=== PATIENT | female | born 1970 | race Caucasian/White ===

== ENCOUNTER 2023-05-23 17:33 | Emergency (ER) | payer OTHER, SELFPAY ==
[2023-05-23 17:37] VITALS: BP 158/77; PULSE 88; RESP 18; TEMP 36.2; O2SAT 93; BMI 42.6
--- NOTE | 2023-05-23 17:44 | ED_ITS ---
HPI - Back Pain/Injury General Chief Complaint: Back Pain/Injury Stated Complaint: back and upper leg pain Time Seen by Provider: 05/23/23 17:44 Source: patient History of Present Illness HPI Narrative: This is a 52-year-old female presents emergency department due to right-sided lumbar pain with radiation to her right anterior thigh onset 4 days ago while lifting up her . She isn't recall any acute trauma to the lower back or right lower extremity. Denies any saddle paresthesia, urinary or bowel incontinence, fevers, or any other concerning signs or symptoms. Related Data Home Medications Medication Instructions Recorded Confirmed Atorvastatin Calcium (Lipitor) 40 mg PO HS ##0 01/18/10 07/08/22 LEVOTHYROXINE SODIUM (Synthroid) 75 mcg PO ##0 01/18/10 07/08/22 Metformin Hydrochloride 1,000 mg PO BID ##0 01/18/10 07/08/22 (Glucophage) [FISH OIL] 1,000 mg PO QDAY ##0 01/18/10 07/08/22 Previous Rx's Medication Instructions Recorded alprazolam 2 mg tablet (Xanax) 2 mg PO ONCE PRN anxiety #1 tab 07/08/22 cyclobenzaprine 10 mg tablet 10 mg PO TID #30 tabs 05/23/23 methylprednisolone 4 mg tablets in See Rx Instructions PO .COMPLEX 05/23/23 a dose pack (Medrol (Dada)) #21 ea Allergies Allergy/AdvReac Type Severity Reaction Status Date / Time No Known Drug Allergies Allergy Verified 05/23/23 17:37 Review of Systems Review of Systems Narrative: GENERAL: Denies chills, fatigue, malaise, fever, sweats. HEENT: Denies sinus pain, ear pain, sore throat, difficulty swallowing, dizziness. RESPIRATORY: Denies dyspnea, cough, wheezing, hemoptysis, sputum. CARDIOVASCULAR: Denies chest pain, palpitations, orthopnea, edema, GASTROINTESTINAL: Denies nausea, vomiting, abdominal pain, diarrhea, constipation, melena. : Denies dysuria, frequency, incontinence, hematuria, urinary retention. MUSCULOSKELETAL: Reports right-sided lower back pain as well as right thigh pain SKIN: Denies rash, skin lesions, or other NEUROLOGIC: Denies weakness, headache, numbness, change in speech, confusion, seizures, incoordination. PSYCHIATRIC: No concerning psychosocial issues. 12 point review of systems is negative except for those stated above Patient History Social History Smoking Status: Never smoker Smoking Status: Never smoker alcohol intake frequency: holidays/special occasions only Substance Use Type: does not use Exam Narrative Exam Narrative: GENERAL: Well-developed patient, in mild distress. HEAD: Atraumatic. Normocephalic. EYES: Pupils equal round and reactive. Extraocular motions intact. No scleral icterus. No injection or drainage. ENT: Nose without bleeding, purulent drainage. Throat without erythema, tonsillar hypertrophy or exudate. Airway patent. NECK: Trachea midline. Non tender EXTREMITIES: No edema or joint tenderness. BACK: Tenderness to palpation to the right lumbar paraspinal NEURO: AOx3. SKIN: No rash or erythema of visible areas Initial Vital Signs Initial Vital Signs: Vital Signs Temperature 97.2 F L 05/23/23 17:37 Pulse Rate 88 05/23/23 17:37 Respiratory Rate 18 05/23/23 17:37 Blood Pressure 158/77 H 05/23/23 17:37 Pulse Oximetry 93 05/23/23 17:37 Oxygen Delivery Method Room Air 05/23/23 17:37 Course Vital Signs Vital signs: Vital Signs - 8 hr 05/23/23 17:37 Temperature 97.2 F L Pulse Rate 88 Respiratory Rate 18 Blood Pressure 158/77 H Pulse Oximetry 93 Oxygen Delivery Method Room Air MDM - Back Pain/Injury MDM Narrative Medical decision making narrative: MDM * differential diagnosis includes but not limited to lumbosacral strain, spinal cord injury, vertebral fracture * Prior records reviewed: Patient has not been here for similar complaints in the past * My lab interpretation: None obtained * My imgaing interpretation: None obtained * Clinical Decision Rules/Scores evaluated: None * Independent discussions with: None ED Course: This is a 52-year-old female presenting to the emergency department due to suspected lumbosacral strain. She had not present with any red flag symptoms concerning for any kind of spinal cord injury. Based on mechanism low concern for any kind of vertebral fracture. 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 We will prescribe cyclobenzaprine and Medrol Dosepak. Recommended ibuprofen and Tylenol [id number] as well as light stretching. Toradol given in the emergency department. Shared Decision Making: Discussed plan with the patient who is comfortable with the plan Social Considerations: None Disposition: Discharged to home Discharge Plan Departure Patient Disposition: Home Clinical Impression: Strain of lumbar region Instructions: DI for Back Strain or Sprain Activity Restrictions/Additional Instructions: Thank you for coming to the [facility] Emergency Department today. As we discussed I suspect your of the lumbosacral strain. The Toradol give me today should help. We will also prescribe muscle relaxants as well as steroids to decrease the inflammation. Also recommend Tylenol ibuprofen as needed for the pain. Please continue with light activity and stretching. I hope you feel better soon. Please follow up with your primary care provider within a week if your symptoms continue. If you do not have a primary care provider please contact the [facility] Resource line at [phone]. They will ask some questions about your medical history and help you get set up with a provider in the community. Prescriptions: New cyclobenzaprine 10 mg tablet 10 mg PO TID Qty: 30 0RF methylprednisolone [Medrol (Dada)] 4 mg tablets,dose pack See Rx Instructions .ROUTE .COMPLEX Qty: 21 0RF Rx Instructions: orally per package directions No Action LEVOTHYROXINE SODIUM (Synthroid) 75 mcg PO Qty: 0 Metformin Hydrochloride (Glucophage) 1,000 mg PO BID Qty: 0 Atorvastatin Calcium (Lipitor) 40 mg PO HS Qty: 0 [FISH OIL] 1,000 mg PO QDAY Qty: 0 alprazolam [Xanax] 2 mg tablet 2 mg PO ONCE PRN (Reason: anxiety) Qty: 1 0RF Rx Instructions: Take one tablet one hour prior to MRI appointment. Referrals: Dena Oh ARNP [Primary Care Provider] - Stand Alone Forms: Patient Portal/API
[2023-05-23] MEDS: KETOROLAC 30 MG/ML VIAL 15 MG IM (17:55)
[2023-05-23 18:04] VITALS: BP 132/81; PULSE 96; RESP 12; O2SAT 98
== END 2023-05-23 18:11 | disposition home or self-care (01) ==
PROVIDERS: Emergency Provider Physician Assistant Medical; PCP Nurse Practitioner Family
DX: S39.012A Strain of muscle, fascia and tendon of lower back, initial encounter (principal)
CPT/HCPCS: 96372; 99283; J1885

== ENCOUNTER 2023-05-27 15:11 | Emergency (ER) | payer OTHER, SELFPAY ==
[2023-05-27 15:14] VITALS: BP 180/88; PULSE 82; RESP 20; TEMP 36.7; O2SAT 98; BMI 41.9
--- NOTE | 2023-05-27 16:24 | DI.RAD.S_ITS ---
PROCEDURE: XR KNEE RT 3V INDICATIONS: pain, difficulty ambulating TECHNIQUE: 3 views of the knee were acquired. COMPARISON: None. FINDINGS: Bones: No fractures or dislocations. No suspicious bony lesions. Minimal to mild tricompartmental arthritic change. Patellar osteophyte. Soft tissues: No joint effusion. No suspicious soft tissue calcifications. IMPRESSION: No visualized acute fracture or dislocation. However, if clinical concern and/or pain persist, short interval imaging followup in 7-10 days is recommended, as occult injury cannot be definitively excluded. Dictated by: Jessica Garza M.D. on 05/27/2023 at 16:48 Approved by: Jessica Garza M.D. on 05/27/2023 at 16:48
--- NOTE | 2023-05-27 16:25 | DI.RAD.S_ITS ---
PROCEDURE: XR HIP W PEL IF DONE RT 2V INDICATIONS: pain, difficulty ambulating TECHNIQUE: AP pelvis with lateral view(s) of the right hip(s). COMPARISON: None. FINDINGS: Bones: No fractures or dislocations. Pelvic ring appears intact. No suspicious bony lesions. Soft tissues: The visualized bowel gas pattern is normal. No suspicious soft tissue calcifications. IMPRESSION: No visualized acute fracture or dislocation. However, if clinical concern and/or pain persist, short interval imaging followup in 7-10 days is recommended, as occult injury cannot be definitively excluded. Dictated by: Jessica Garza M.D. on 05/27/2023 at 16:47 Approved by: Jessica Garza M.D. on 05/27/2023 at 16:47
--- NOTE | 2023-05-27 18:04 | ED.GENADULT ---
HPI - General Adult General Chief complaint: Back Pain/Injury Stated complaint: leg and back pain Time Seen by Provider: 05/27/23 17:32 Source: patient Mode of arrival: Wheelchair History of Present Illness HPI narrative: 52-year-old woman with a history of diabetes, hypothyroidism, depression, hyperlipidemia who presents for the 2nd time complaining of low back pain, was seen on May 23 and given a Medrol Dosepak. She notes that the pain has not significantly changed but over the last 48 hours she is having significantly increased weakness in the right hip and thigh. She was walking up steps today and the thigh/hip on the right side completely gave out causing her to fall. She presents because of the progressive weakness and now difficulty with walking. She denies any fevers, cough, chills. She has not had any personal history of cancers however was having endometrial bleeding postmenopausal in June of last year was found to have a large uterine leiomyoma with no other significant abnormalities. She denies any change to voiding, stooling and is not complaining of any abdominal pain. No reports of fevers. Related Data Home Medications Medication Instructions Recorded Confirmed Atorvastatin Calcium (Lipitor) 40 mg PO HS ##0 01/18/10 07/08/22 LEVOTHYROXINE SODIUM (Synthroid) 75 mcg PO ##0 01/18/10 07/08/22 Metformin Hydrochloride 1,000 mg PO BID ##0 01/18/10 07/08/22 (Glucophage) [FISH OIL] 1,000 mg PO QDAY ##0 01/18/10 07/08/22 Previous Rx's Medication Instructions Recorded alprazolam 2 mg tablet (Xanax) 2 mg PO ONCE PRN anxiety #1 tab 07/08/22 cyclobenzaprine 10 mg tablet 10 mg PO TID #30 tabs 05/23/23 methylprednisolone 4 mg tablets in See Rx Instructions PO .COMPLEX 05/23/23 a dose pack (Medrol (Dada)) #21 ea oxycodone-acetaminophen 5 mg-325 1 tab PO Q6H PRN pain #10 tabs 05/27/23 mg tablet Allergies Allergy/AdvReac Type Severity Reaction Status Date / Time No Known Drug Allergies Allergy Verified 05/23/23 17:37 Review of Systems Review of Systems Narrative: Pertinent positive and negative findings as per HPI Patient History Medical History (Updated 05/27/23 @ 20:20 by Nena Canela MD) Hyperlipidemia Hypothyroidism (acquired) Diabetes Social History Smoking Status: Never smoker Smoking Status: Never smoker alcohol intake frequency: holidays/special occasions only Substance Use Type: does not use Exam Initial Vital Signs Initial Vital Signs: Vital Signs Temperature 98.1 F 05/27/23 15:14 Pulse Rate 82 05/27/23 15:14 Respiratory Rate 20 05/27/23 15:14 Blood Pressure 180/88 H 05/27/23 15:14 Pulse Oximetry 98 05/27/23 15:14 Oxygen Delivery Method Room Air 05/27/23 15:14 General: Alert appropriate in mild distress secondary to pain, comfortable lying on the stretcher. Able to give a complete coherent history. Respiratory: Able to speak in full sentences, no obvious respiratory distress Skin: No obvious rashes, warm and dry Abdomen: Soft, nontender no flank pain Spine: No point tenderness, swelling or erythema midline over the lower thoracic or lumbar spine. No pelvic ring tenderness. She does have some minor paraspinous muscle spasm on the right side of the lumbar area Neurologic: Right leg is definitely more weak than the left leg with leg lift internal and external rotation. She has no change to sensation in the same distribution. Pain distribution is in a L1/L2 right side distribution. Psych: appropriate insight and affect, cooperative Course Orders Ordered: ED Orders 05/27/23 16:24 XR knee RT 3V Stat 05/27/23 16:25 XR hip w pel if done RT 2V Stat 05/27/23 18:15 MR lumbar spine wo/w con Stat 05/27/23 18:25 CBC Auto Diff [Complete Blood Count AUTO DIFF] Stat CMP [Comprehensive Metabolic Panel] Stat CRP [C-Reactive Protein Quant] Stat Discontinued Medications Diazepam (Diazepam 10 Mg/2 Ml Syringe) 5 mg IV NOW ONE Stop: 05/27/23 18:16 Last Admin: 05/27/23 18:31 Dose: 5 mg Documented By: RICO Ketorolac Tromethamine (Ketorolac 30 Mg/Ml Vial) 15 mg IV NOW ONE Stop: 05/27/23 18:19 Last Admin: 05/27/23 18:32 Dose: 15 mg Documented By: RICO Vital Signs Vital signs: Vital Signs - 8 hr 05/27/23 15:14 05/27/23 19:18 Temperature 98.1 F Pulse Rate 82 84 Respiratory Rate 20 18 Blood Pressure 180/88 H 185/91 H Pulse Oximetry 98 92 Oxygen Delivery Method Room Air Room Air Medical Decision Making Lab Data 05/27/23 18:25 05/27/23 18:25 Labs: Lab Results 05/27/23 Range/Units 18:25 WBC 8.5 (4.5-11.0) X10^3/uL RBC 4.25 (4.0-5.2) X10^6/uL Hgb 12.8 (12.0-16.0) g/dL Hct 37.1 (36-46) % MCV 87.3 (80-100) fL MCH 30.1 (26-34) PG MCHC 34.5 (30-36) % RDW 13.5 (11.6-14.8) % Plt Count 262 (150-400) X10^3/uL Neut % (Auto) 69.5 (50-75) % Lymph % (Auto) 22.3 L (25-40) % Fisher % (Auto) 7.3 (3-14) % Eos % (Auto) 0.5 L (2-4) % Baso % (Auto) 0.4 (0-2) % Neut # (Auto) 5900 (8306-0920) /uL Lymph # (Auto) 1900 (6634-6467) /uL Fisher # (Auto) 600 (0-900) /uL Eos # (Auto) 0 (0-450) /uL Baso # (Auto) 0 (0-100) /uL Sodium 136 L (137-145) mmol/L Potassium 4.2 (3.4-5.1) mmol/L Chloride 98 (98-107) mmol/L Carbon Dioxide 26 (22-32) mmol/L BUN 26 H (7-17) mg/dL Creatinine 0.85 (0.52-1.04) mg/dL Estimated GFR > 60 (>60) mL/min BUN/Creatinine Ratio 30.6 H (6-22) Glucose 213 H (70-100) mg/dL Calcium 10.3 H (8.4-10.2) mg/dL Total Bilirubin 0.5 (0.2-1.3) mg/dL AST TNP ALT 59 H (<35) IU/L Alkaline Phosphatase 51 (38-126) U/L C-Reactive Protein 1.3 H (<1.0) mg/dL Total Protein 7.9 (6.3-8.2) g/dL Albumin 4.6 (3.5-5.0) g/dL Globulin 3.3 (1.7-4.1) g/dL Albumin/Globulin Ratio 1.4 (1.0-2.8) MDM Narrative Medical decision making narrative: CC: Right lower extremity weakness Complicating co-morbidities: Low back pain for the last 4-5 days Data collected from: patient Medical records reviewed: Notes from [facility] are reviewed Differential considered: Low back pain, muscle spasm, pathologic fractures, epidural abscess, acute disc herniation or extrusion with acute nerve root compression Exam documented above, pertinent findings include: Patient does have some midline low back tenderness and her right leg with hip flexion, internal rotation and external rotation is slightly more weak than the left. She does not have any sensory deficits. Lab Test results independently reviewed as above. Pertinent findings: CBC is unremarkable Chemistries are notable for slightly elevated glucose, calcium slightly elevated at 10.3 C-reactive protein elevated at 1.3 Independently reviewed EKG: Imaging studies independently reviewed: MR lumbar spine as interpreted by the radiologist: L2-L3: The disc height and disk signal are well-preserved. Moderate generalized disc bulge is seen. There is a superimposed central disc protrusion. Moderate facet joint hypertrophy is seen. Mild to moderate bilateral neural foraminal narrowing can be seen. Mild to moderate central canal narrowing is seen. L3-L4: The disc height is well-preserved. Loss of disc signal is seen at this level. Moderate disc bulge is seen, which is eccentric to the right. There is a right foraminal disc extrusion seen, with superior migration of the disc material. There is moderate to severe right-sided neural foraminal narrowing, with a degree of compression upon the exiting right L3 nerve root. Moderate facet joint hypertrophy is seen. Mild central canal narrowing is seen. Consultations:Dr Rodriguez orthopedic surgeon is consulted. He felt that this was an urgent but not emergent finding and recommended follow up with Dr. Sanchez and will likely end up with a microdiskectomy. He felt that discharge home was safe. Treatments: IV diazepam for sedation prior to MRI, IV Toradol, to oral Percocet Discussion: Patient is re-evaluated. Reviewed findings of the MRI suggesting that the ?moderate degree of severe right-sided neural foraminal narrowing with a degree of compression upon the exiting right L3 nerve root? is the source of her progressive weakness over the last 48 hours. Discussed the risk of falling and recommended that she use a walker(she states that she has 2 walkers at home). We also discussed pain medication use, she has some oxycodone left over from a prior surgery and I will give her an additional 10 mg of Percocet. Reviewed need for MiraLax to prevent constipation. 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 I did review the MRI results with the orthopedic surgeon on-call. He felt that this was an urgent but not emergent issue. That means that you get to go home from the emergency room this evening but you do need to contact [facility] at [phone] tomorrow for an urgent appointment. When you talk with him please let them know that you were seen in the emergency department, an MRI was done, you are having progressive weakness in your right leg with severe right-sided neural foraminal narrowing appreciated on the MRI. Let them know the ER doctor talked with the orthopedic doctor on-call who suggested that follow-up include an urgent appointment with Dr. Sanchez Using 400 mg of ibuprofen (2 ykpn-djm-[id number] pills) and 1 Tylenol every 6 hours can be very helpful in controlling pain. For severe pain you can add 1-2 5 mg oxycodone tablets. I have given you a prescription for Percocet which includes Tylenol and oxycodone. Please make sure you are adding MiraLax on the days that you are taking oxycodone to prevent constipation. Your prescription was electronically transmitted to [facility] in [place] You will need to use the walker that you have at home. The biggest risk at this point is fall related to the weakness in the right leg which causes additional injuries. If you find that you are getting worse or develop any new symptoms, please feel free to return to the emergency department for further evaluation. Prescriptions: New oxycodone-acetaminophen 5-325 mg tablet 1 tab PO Q6H PRN (Reason: pain) Qty: 10 0RF No Action LEVOTHYROXINE SODIUM (Synthroid) 75 mcg PO Qty: 0 Metformin Hydrochloride (Glucophage) 1,000 mg PO BID Qty: 0 Atorvastatin Calcium (Lipitor) 40 mg PO HS Qty: 0 [FISH OIL] 1,000 mg PO QDAY Qty: 0 alprazolam [Xanax] 2 mg tablet 2 mg PO ONCE PRN (Reason: anxiety) Qty: 1 0RF Rx Instructions: Take one tablet one hour prior to MRI appointment. cyclobenzaprine 10 mg tablet 10 mg PO TID Qty: 30 0RF methylprednisolone [Medrol (Dada)] 4 mg tablets,dose pack See Rx Instructions .ROUTE .COMPLEX Qty: 21 0RF Rx Instructions: orally per package directions Referrals: Dena Oh ARNP [Primary Care Provider] - Stand Alone Forms: Patient Portal/API
--- NOTE | 2023-05-27 18:15 | DI.MRI.S_ITS ---
PROCEDURE: MR LUMBAR SPINE WO/W CON INDICATIONS: L1, L2 weakness progressive over 48hrs TECHNIQUE: Noncontrast sagittal T1 spin echo and T2 fast spin echo, sagittal STIR, axial T1 and T2 fast spin echo through the lumbar spine. In cases with scoliosis, additional coronal T2 fast spin echo may be performed. After the administration of contrast, sagittal and axial T1 spin echo with fat saturation through the lumbar spine. COMPARISON: [facility], CR, XR KNEE RT 3V, 05/27/2023, 16:28. [facility], CR, XR HIP W PEL IF DONE RT 2V, 05/27/2023, 16:28. [facility], CT, CT ABDOMEN PELVIS WITH CONTRAST, 01/09/2020, 0:26. FINDINGS: Image quality: Diagnostic, with note made of artifact, particularly affecting the postcontrast images superiorly. Alignment and curvature: There is normal bony alignment. Marrow: Marrow is of normal overall signal. No acute vertebral body compression fractures. No suspicious marrow enhancement. Spinal cord: Conus medullaris terminates at the T12-L1 level. Visualized spinal cord demonstrates normal signal, without suspicious enhancement. Paraspinous soft tissues: No paravertebral masses or abnormal enhancement. T12-L1: Normal appearance. L1-L2: Normal appearance. L2-L3: The disc height and disk signal are well-preserved. Moderate generalized disc bulge is seen. There is a superimposed central disc protrusion. Moderate facet joint hypertrophy is seen. Mild to moderate bilateral neural foraminal narrowing can be seen. Mild to moderate central canal narrowing is seen. L3-L4: The disc height is well-preserved. Loss of disc signal is seen at this level. Moderate disc bulge is seen, which is eccentric to the right. There is a right foraminal disc extrusion seen, with superior migration of the disc material. There is moderate to severe right-sided neural foraminal narrowing, with a degree of compression upon the exiting right L3 nerve root. Moderate facet joint hypertrophy is seen. Mild central canal narrowing is seen. L4-L5: The disc height and disk signal are relatively well-preserved. Mild to moderate disc bulge is seen. Mild to moderate facet hypertrophy is seen. Mild bilateral neural foraminal narrowing is seen. Mild central canal narrowing is seen. L5-S1: Moderate loss of disc height is seen. Loss of disc signal is seen. Moderate generalized disc bulge is seen. There is a mild central disc extrusion, with inferior migration of the disc material. Mild facet joint hypertrophy is seen. There is moderate left-sided and [id number] right-sided neural foraminal narrowing. Mild central canal narrowing is seen. IMPRESSION: At the L3-L4 level, there is a disc extrusion seen within the right neural foramen, with compression upon the exiting right L3 nerve root. Additional degenerative changes are seen elsewhere, including a mild central disc extrusion at the L5-S1 level. No abnormal enhancement is seen. Dictated by: Jose Kothari M.D. on 05/27/2023 at 18:19 Approved by: Jose Kothari M.D. on 05/27/2023 at 18:23
[2023-05-27] MEDS: diazePAM 10 MG/2 ML SYRINGE 5 MG IV (18:31)
[2023-05-27] MEDS: KETOROLAC 30 MG/ML VIAL 15 MG IV (18:32)
[2023-05-27 18:48] LABS: Add Manual Diff / Slide Review NO; Basophils Absolute Auto 0 /uL (0-100); Basophils Percent Auto 0.4 % (0-2); Eosinophils Absolute Auto 0 /uL (0-450); Eosinophils Percent Auto 0.5 % (2-4); Hematocrit 37.1 % (36-46); Hemoglobin 12.8 g/dL (12.0-16.0); Lymphocytes Absolute Auto 1900 /uL (1100-4500); Lymphocytes Percent Auto 22.3 % (25-40); Mean Corpuscular HGB Conc 34.5 % (30-36); Mean Corpuscular Hemoglobin 30.1 PG (26-34); Mean Corpuscular Volume 87.3 fL (80-100); Monocytes Absolute Auto 600 /uL (0-900); Monocytes Percent Auto 7.3 % (3-14); Neutrophils Absolute Auto 5900 /uL (1500-7000); Neutrophils Percent Auto 69.5 % (50-75); Platelet Count 262 X10^3/uL (150-400); Red Blood Cell Count 4.25 X10^6/uL (4.0-5.2); Red Cell Distribution Width 13.5 % (11.6-14.8); White Blood Cell Count 8.5 X10^3/uL (4.5-11.0)
[2023-05-27 18:55] LABS: Alanine Aminotransferase 59 IU/L (<35); Albumin 4.6 g/dL (3.5-5.0); Albumin Globulin Ratio 1.4 (1.0-2.8); Alkaline Phosphatase 51 U/L (38-126); BUN Creatinine Ratio 30.6 (6-22); Bilirubin Total 0.5 mg/dL (0.2-1.3); Blood Urea Nitrogen 26 mg/dL (7-17); C-Reactive Protein Quant 1.3 mg/dL (<1.0); Calcium 10.3 mg/dL (8.4-10.2); Carbon Dioxide 26 mmol/L (22-32); Chloride 98 mmol/L (98-107); Estimated Glomerular Filt Rate > 60 mL/min (>60); Globulin 3.3 g/dL (1.7-4.1); Glucose 213 mg/dL (70-100); HEMOLYSIS < 15 (0-50); Potassium 4.2 mmol/L (3.4-5.1); Sodium 136 mmol/L (137-145); Total Protein 7.9 g/dL (6.3-8.2)
[2023-05-27 19:18] VITALS: BP 185/91; PULSE 84; RESP 18; O2SAT 92
[2023-05-27] MEDS: OXYCODONE/ACETAMINOPHEN 5/325 TABLET 2 TAB PO (20:12)
[2023-05-27 20:27] VITALS: BP 176/83; PULSE 83; RESP 16; O2SAT 95
[2023-05-29 16:00] LABS: Aspartate Aminotransferase 50 IU/L (14-36)
== END 2023-05-27 20:27 | disposition home or self-care (01) ==
PROVIDERS: Emergency Provider Emergency Medicine; PCP Nurse Practitioner Family
DX: S34.21XA Injury of nerve root of lumbar spine, initial encounter (principal); R53.1 Weakness
CPT/HCPCS: 36415; 72158; 73502; 73562; 80053; 85025; 86140; 96374; 96375; 99284; A9579; J1885; J3360

== ENCOUNTER 2024-01-26 11:49 | Emergency (ER) | payer OTHER, SELFPAY ==
[2024-01-26] VITALS (9 sets, daily range): BP systolic 123–139; BP diastolic 65–76; PULSE 73–90; RESP 14–18; TEMP 36.6; O2SAT 95–98; BMI 33.0
--- NOTE | 2024-01-26 11:55 | EKG_ITS ---
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
--- NOTE | 2024-01-26 11:55 | DI.RAD.S_ITS ---
PROCEDURE: XR CHEST 1V INDICATIONS: chest pain TECHNIQUE: One view of the chest was acquired. COMPARISON: None. FINDINGS: Surgical changes and devices: Surgical clips along the left neck. Lungs and pleura: Lungs are clear. No pleural effusions or pneumothorax. Mediastinum: Mediastinal contours appear normal. Heart size is normal. Bones and chest wall: No suspicious bony lesions. Overlying soft tissues appear unremarkable. IMPRESSION: No acute cardiopulmonary abnormality is seen. Dictated by: Sachin Jones M.D. on 01/26/2024 at 13:37 Approved by: Sachin Jones M.D. on 01/26/2024 at 13:38
--- NOTE | 2024-01-26 12:01 | ED.SYNCOPE ---
HPI - Syncope General Chief Complaint: Syncope Stated Complaint: LOC 3x last night, back px Time Seen by Provider: 01/26/24 11:56 Source: patient, family, RN notes reviewed and old records reviewed Mode of arrival: Ambulatory Limitations: no limitations History of Present Illness HPI narrative: 53-year-old female history of diabetes, hypothyroidism, dyslipidemia, depression with carpal tunnel and trigger finger surgery proximally week ago on her right hand. Patient states last night she was sitting on the couch felt very hot and sweaty like she was having a hot flash that she would to go use the restroom. She stopped up had a bowel movement and states that when she stood up after using the restroom us to consciousness. Has been helped her up walked her to the bedroom. She laid down in the got back up to turn off the lights and lost consciousness once again. Patient states that she then got up to the dresser and the same thing happened. This happened over about a 30 minute period between midnight and 12-12:30 last night. Has been up today walking but states has been very cautious with her ambulation. She has not had any persistent symptoms. Her was present and states she was out for a minute or 2 at the most. Awoke without any confusion. Patient states she was very sweaty. She did not really feel dizzy. She felt a little bit lightheaded. She has had one prior syncopal episode in the past at work. States no fevers or chills otherwise. No cough cold or congestion. No headaches. No chest pain no shortness of breath, no nausea or vomiting. Had 2 episodes of diarrhea last night. Had no bright red blood or melanotic stools. No urinary symptoms. No incontinence. No new swelling of extremities. She states her carpal tunnel and trigger finger has been healing very well. She was about a week postop. Patient states she does have pain in her tailbone where she fell. Patient states she is on metformin daily, losartan, levothyroxine. She has lost weight she states it felt like she might be having sugar lower hypoglycemia and did take a glucose tab after this. She had a hydrocodone the 1st night postoperatively but has not only been taking Tylenol and ibuprofen since then. States prior surgeries include carpal tunnel repair and trigger finger a week ago, total hysterectomy in September, cholecystectomy, right thyroid lobectomy. No known drug allergies. No tobacco, alcohol or recreational drugs. No long distance travel or prolonged sitting. Primary care is Dena Oh. Related Data Home Medications Medication Instructions Recorded Confirmed Atorvastatin Calcium (Lipitor) 40 mg PO HS ##0 01/18/10 07/08/22 LEVOTHYROXINE SODIUM (Synthroid) 75 mcg PO ##0 01/18/10 07/08/22 Metformin Hydrochloride 1,000 mg PO BID ##0 01/18/10 07/08/22 (Glucophage) [FISH OIL] 1,000 mg PO QDAY ##0 01/18/10 07/08/22 Previous Rx's Medication Instructions Recorded alprazolam 2 mg tablet (Xanax) 2 mg PO ONCE PRN anxiety #1 tab 07/08/22 cyclobenzaprine 10 mg tablet 10 mg PO TID #30 tabs 05/23/23 methylprednisolone 4 mg tablets in See Rx Instructions PO .COMPLEX 05/23/23 a dose pack (Medrol (Dada)) #21 ea oxycodone-acetaminophen 5 mg-325 1 tab PO Q6H PRN pain #10 tabs 05/27/23 mg tablet Allergies Allergy/AdvReac Type Severity Reaction Status Date / Time No Known Drug Allergies Allergy Verified 01/26/24 12:00 Review of Systems Review of Systems ROS Unobtainable: All systems reviewed & are unremarkable except as noted in HPI and below Patient History Medical History Hyperlipidemia Hypothyroidism (acquired) Diabetes Social History Smoking Status: Never smoker Smoking Status: Never smoker alcohol intake frequency: holidays/special occasions only Substance Use Type: does not use Exam Narrative Exam Narrative: GEN: well nourished, well appearing female, alert and oriented x 3, patient appears to be in mild distress. HEENT: Atraumatic, pupils are equal round reactive to light, extraocular movements are intact, nares are clear, TMs are clear with no fluid, there is no conjunctival pallor. Throat is clear without any exudates, erythema, tonsillar enlargement or uvular deviation, cervical vertebral tenderness. HEART: Regular rate and rhythm without murmur, clicks, rubs. Pulses are equal in upper and lower extremities LUNGS:Lungs clear to auscultation, no wheezes, rales, crackles, chest moves symmetrically ABD:bowel sounds normal, soft, non-tender, no guarding, rebound, rigidity, no masses noted, no hepatosplenomegaly :No CVA tenderness MSCL: Non-tender, no muscle atrophy, muscles strength 5/5 upper and lower extremities, full range of motion. NEURO:CN 2-12 intact, sensation normal Initial Vital Signs Initial Vital Signs: Vital Signs Pulse Rate 89 01/26/24 11:54 Blood Pressure 139/76 01/26/24 11:54 Pulse Oximetry 95 01/26/24 11:54 Course Orders Ordered: ED Orders 01/26/24 11:55 XR chest 1V Stat EKG-12 Lead Stat 01/26/24 11:58 Complete Blood Count AUTO DIFF Stat Comprehensive Metabolic Panel Stat D Dimer Stat Lipase Stat Magnesium Stat NT-proBNP (BNP-Adult 18+) Stat PTT Partial Thromboplastin Reyes Stat Prothrombin Time INR Stat Troponin & CK Cardiac Panel Stat 01/26/24 12:20 XR sacrum coccyx min 2V Stat 01/26/24 13:21 CT angio chest PE protocol Stat Discontinued Medications Aspirin (Aspirin 81 Mg Chew Tab) 324 mg PO NOW ONE Stop: 01/26/24 11:56 Last Admin: 01/26/24 13:40 Dose: Not Given Documented By: VICKI Sodium Chloride (Normal Saline 0.9%) 1,000 mls @ 1,000 mls/hr IV BOLUS ONE Stop: 01/26/24 13:19 Last Infusion: 01/26/24 13:40 Dose: Infused Documented By: Admin: 01/26/24 12:34 Dose: 1,000 mls/hr Documented By: VICKI Vital Signs Vital signs: Vital Signs - 8 hr 01/26/24 11:54 01/26/24 11:54 01/26/24 11:58 Temperature 98 F Pulse Rate 89 90 Respiratory Rate 16 Blood Pressure 139/76 139/76 Pulse Oximetry 95 96 Oxygen Delivery Method Room Air 01/26/24 12:00 01/26/24 12:00 01/26/24 12:37 Temperature Pulse Rate 81 73 Respiratory Rate 14 Blood Pressure 132/65 Pulse Oximetry 98 97 Oxygen Delivery Method 01/26/24 12:37 01/26/24 13:00 01/26/24 13:30 Temperature Pulse Rate 73 81 Respiratory Rate 16 16 Blood Pressure 123/67 Pulse Oximetry 97 97 Oxygen Delivery Method 01/26/24 13:45 01/26/24 13:45 01/26/24 14:00 Temperature Pulse Rate 90 79 Respiratory Rate 16 Blood Pressure 129/69 Pulse Oximetry 95 95 97 Oxygen Delivery Method 01/26/24 14:00 01/26/24 14:30 Temperature Pulse Rate 86 Respiratory Rate 18 Blood Pressure 127/66 124/70 Pulse Oximetry 96 Oxygen Delivery Method Room Air MDM - Syncope Lab Data 01/26/24 11:58 01/26/24 11:58 Labs: Lab Results 01/26/24 Range/Units 11:58 WBC 11.6 H (4.5-11.0) X10^3/uL RBC 4.81 (4.0-5.2) X10^6/uL Hgb 14.2 (12.0-16.0) g/dL Hct 41.9 (36-46) % MCV 87.1 (80-100) fL MCH 29.6 (26-34) PG MCHC 33.9 (30-36) % RDW 13.4 (11.6-14.8) % Plt Count 283 (150-400) X10^3/uL Neut % (Auto) 71.1 (50-75) % Lymph % (Auto) 22.4 L (25-40) % [place] % (Auto) 5.4 (3-14) % Eos % (Auto) 0.9 L (2-4) % Baso % (Auto) 0.2 (0-2) % Neut # (Auto) 8200 H (4502-2464) /uL Lymph # (Auto) 2600 (2468-2013) /uL [place] # (Auto) 600 (0-900) /uL Eos # (Auto) 100 (0-450) /uL Baso # (Auto) 0 (0-100) /uL PT 11.1 (9.4-12.5) SECONDS INR 1.0 (0.9-1.3) APTT 34 (25.1-36.5) SECONDS D-Dimer 3954 H (<500) ng/ml Sodium 134 L (137-145) mmol/L Potassium 4.6 (3.4-5.1) mmol/L Chloride 98 (98-107) mmol/L Carbon Dioxide 25 (22-32) mmol/L BUN 24 H (7-17) mg/dL Creatinine 0.67 (0.52-1.04) mg/dL Estimated GFR > 60 (>60) mL/min BUN/Creatinine Ratio 35.8 H (6-22) Glucose 183 H (70-100) mg/dL Calcium 9.7 (8.4-10.2) mg/dL Magnesium 1.9 (1.6-2.3) mg/dL Total Bilirubin 0.4 (0.2-1.3) mg/dL AST 24 (14-36) IU/L ALT 27 (<35) IU/L Alkaline Phosphatase 67 (38-126) U/L Total Creatine Kinase 69 (30-135) U/L Troponin I < 0.012 (0.01-0.034) ng/mL NT-Pro-B Natriuret Pep 83 (<125) pg/mL Total Protein 7.7 (6.3-8.2) g/dL Albumin 4.3 (3.5-5.0) g/dL Globulin 3.4 (1.7-4.1) g/dL Albumin/Globulin Ratio 1.3 (1.0-2.8) Lipase 67 (23-300) U/L Point of Care Testing Glucose POC 172 Imaging Data Chest x-ray: Radiologist's Impression: Genie Clayton??53??F??1970 ? Allergy/Adv: No Known Drug Allergies Close Chest CTA (Signed) Sachin Jones - 01/26/24 Sacrum and Coccyx X-Ray (Signed) Sachin Jones - 01/26/24 Chest X-Ray (Signed) Sachin Jones - 01/26/24 Lumbar Spine MRI (Signed) Jose Kothari - 05/27/23 Hip X-Ray (Signed) Jessica Garza - 05/27/23 Knee X-Ray (Signed) Jessica Garza - 05/27/23 DI Result 07/14/22 DI Result 06/23/22 Launch?[address] [address] XRay Report Signed Patient: Genie Clayton MR#: [id number] : 1970 Acct:[id number] Age/Sex: 53 / F Date of Service: 01/26/24 Loc: ED Accession Number: [id number] Procedure: XR chest 1V Ordering Provider: Oralia Jordan D.O. PROCEDURE: XR CHEST 1V INDICATIONS: chest pain TECHNIQUE: One view of the chest was acquired. COMPARISON: None. FINDINGS: Surgical changes and devices: Surgical clips along the left neck. Lungs and pleura: Lungs are clear. No pleural effusions or pneumothorax. Mediastinum: Mediastinal contours appear normal. Heart size is normal. Bones and chest wall: No suspicious bony lesions. Overlying soft tissues appear unremarkable. IMPRESSION: No acute cardiopulmonary abnormality is seen. Dictated by: Sachin Jones M.D. on 01/26/2024 at 13:37 Approved by: Sachin Jones M.D. on 01/26/2024 at 13:38 CT scan - chest: Radiologist's Impression: Close Chest CTA (Signed) Sachin Jones - 01/26/24 Sacrum and Coccyx X-Ray (Signed) Sachin Jones - 01/26/24 Chest X-Ray (Signed) Sachin Jones - 01/26/24 Lumbar Spine MRI (Signed) Jose Kothari - 05/27/23 Hip X-Ray (Signed) Jessica Garza - 05/27/23 Knee X-Ray (Signed) Jessica Garza - 05/27/23 DI Result 07/14/22 DI Result 06/23/22 Launch?[place] [address] CT Scan Report Signed Patient: Gneie Clayton MR#: [id number] : 1970 Acct:[id number] Age/Sex: 53 / F Date of Service: 01/26/24 Loc: ED Accession Number: [id number] Procedure: CT angio chest PE protocol Ordering Provider: Oralia Jordan D.O. PROCEDURE: CT ANGIO CHEST PE PROTOCOL INDICATIONS: syncope, elevated dimer TECHNIQUE: After the administration of intravenous contrast, 2 mm thick sections acquired from the pulmonary apices to the posterior costophrenic angles. 3-dimensional maximum intensity projection (MIP) coronal and sagittal reformats were then acquired through the thorax. For radiation dose reduction, the following was used: automated exposure control, adjustment of mA and/or kV according to patient size. COMPARISON: None. FINDINGS: Image quality: Diagnostic. Pulmonary arteries: Pulmonary arteries are normal in size, and demonstrate no intraluminal filling defects to suggest central pulmonary embolism. Lower Neck: No enlarged lymph nodes. Thyroid: Right thyroid resection. Axillae: No enlarged lymph nodes. Chest Wall: Unremarkable. Bones: Unremarkable. Lungs and Pleura: No pneumothorax or pleural effusions. No consolidation or suspicious nodules. Heart: Heart size is normal. No pericardial effusion. Three-vessel coronary artery calcifications. Thoracic Vessels: No aortic aneurysm. Mediastinum and [place]: No enlarged lymph nodes. Esophagus: No wall thickening. No hiatal hernia. Upper Abdomen: Visualized upper abdomen solid organs and bowel loops appear normal. IMPRESSION: No pulmonary embolus. No acute cardiopulmonary process. Marked coronary artery calcifications for age. Correlate with risk factors and advise counseling. Consider cardiology referral given extent. Dictated by: Sachin Jones M.D. on 01/26/2024 at 14:07 Approved by: Sachin Jones M.D. on 01/26/2024 at 14:09 sacrum xray: Radiologist's Impression: [place] [address] XRay Report Signed Patient: Genie Clayton MR#: [id number] : 1970 Acct:[id number] Age/Sex: 53 / F Date of Service: 01/26/24 Loc: ED Accession Number: [id number] Procedure: XR sacrum coccyx min 2V Ordering Provider: Oralia Jordan D.O. PROCEDURE: XR SACRUM COCCYX MIN 2V INDICATIONS: tailbone pain after syncope TECHNIQUE: 3 views of the sacrum and coccyx acquired. COMPARISON: None. FINDINGS: Bones: Very mild cortical step-off along the anterior margin of the distal sacral segment. Soft tissues: Visualized bowel gas pattern is normal. No suspicious soft tissue densities. IMPRESSION: Very mild cortical step-off along the anterior margin of the distal sacral segment, concerning for fracture. Dictated by: Sachin Jones M.D. on 01/26/2024 at 13:38 Approved by: Sachin Jones M.D. on 01/26/2024 at 13:39 ECG Data Attestation: I personally reviewed and interpreted this ECG as follows: Prior ECG tracings: not available for review Interpretation: Sinus rhythm rate 82 [place] 148 QRS of 104 QTC of [address] elevation does have a Q-wave in lead 2 3 and AVF. S1Q3no T3. MDM Narrative Medical decision making narrative: 53-year-old female with recent carpal tunnel surgery, patient has approximately a week postoperative. Patient has been feeling fine this week until last night got what she felt like was a hot flash states it felt like she might be having some hypoglycemia. But had 3 episodes of syncope 1 immediately after having a bowel movement, the others all upright with walking. Patient states this happened about 30 minute. She has not had any additional episodes. She is otherwise felt fine besides her tailbone hurting. Labs white count 11.6 hemoglobin of 14 platelets of 283. Coags are negative [place]dimer [place] [address] angio of the chest as patient has had recent surgery with elevated dimer and syncopal episode. Sodium is 130 mildly hyponatremic, potassium 4.6 chloride 98 CO2 is 25 with a BUN 24 creatinine 0.67, glucose is 183 LFTs are negative troponins negative this was obtained about 12 hours after episodes so not felt to require repeat troponin. Lipase is 67. EKG shows sinus rhythm Chest x-ray shows no acute change Sacrum/coccyx x-ray shows mild cortical step-off anterior emergent distal sacral segment concerning for fracture. CTA was obtained no PE no cardiopulmonary process acutely marked coronary artery calcification. Patient received a L of fluids. Continues to be asymptomatic. Patient did note that she thought this felt very similar to white prior hypoglycemic episodes have been. She did take some glucose tabs symptoms did improve afterwards. Discussed with patient felt appropriate for discharge home did not refer to follow up regarding the coronary artery calcification the patient did not have any chest pain shortness of breath and suspect that has not the main cause of her symptoms overnight. Discharge Plan Departure Patient Disposition: Home Clinical Impression: Syncope Instructions: DI for Syncope in Adults (Fainting) Activity Restrictions/Additional Instructions: Please follow up with your primary care physician for recheck. Your workup today did show quite a bit of coronary artery calcification, talk with your physician about your risk factors for cardiac disease they may wish to pursue additional workup. Your x-ray imaging did show a small fracture or step-off along the distal sacral segment. Can weightbear as tolerated. I would recommend using a donut or similar type padding when seated. You may continue your home medications as prescribed. Please return if you are having new or worsening symptoms any recurrent lightheadedness or passing out, any chest pain, shortness of breath, persistent vomiting, signs of infection your surgical site, fevers, black or bloody stools, abdominal back or flank pain or other new or concerning changes. Prescriptions: No Action LEVOTHYROXINE SODIUM (Synthroid) 75 mcg PO Qty: 0 Metformin Hydrochloride (Glucophage) 1,000 mg PO BID Qty: 0 Atorvastatin Calcium (Lipitor) 40 mg PO HS Qty: 0 [FISH OIL] 1,000 mg PO QDAY Qty: 0 alprazolam [Xanax] 2 mg tablet 2 mg PO ONCE PRN (Reason: anxiety) Qty: 1 0RF Rx Instructions: Take one tablet one hour prior to MRI appointment. cyclobenzaprine 10 mg tablet 10 mg PO TID Qty: 30 0RF methylprednisolone [Medrol (Dada)] 4 mg tablets,dose pack See Rx Instructions .ROUTE .COMPLEX Qty: 21 0RF Rx Instructions: orally per package directions oxycodone-acetaminophen 5-325 mg tablet 1 tab PO Q6H PRN (Reason: pain) Qty: 10 0RF Referrals: Dena Oh ARNP [Primary Care Provider] - Stand Alone Forms: Patient Portal/API ED Sign-out Cosign ED Attending Cosignature Attestation: I was immediately available in the department for consultation.
[2024-01-26 12:13] LABS: Add Manual Diff / Slide Review NO; Basophils Absolute Auto 0 /uL (0-100); Basophils Percent Auto 0.2 % (0-2); Eosinophils Absolute Auto 100 /uL (0-450); Eosinophils Percent Auto 0.9 % (2-4); Hematocrit 41.9 % (36-46); Hemoglobin 14.2 g/dL (12.0-16.0); Lymphocytes Absolute Auto 2600 /uL (1100-4500); Lymphocytes Percent Auto 22.4 % (25-40); Mean Corpuscular HGB Conc 33.9 % (30-36); Mean Corpuscular Hemoglobin 29.6 PG (26-34); Mean Corpuscular Volume 87.1 fL (80-100); Monocytes Absolute Auto 600 /uL (0-900); Monocytes Percent Auto 5.4 % (3-14); Neutrophils Absolute Auto 8200 /uL (1500-7000); Neutrophils Percent Auto 71.1 % (50-75); Platelet Count 283 X10^3/uL (150-400); Red Blood Cell Count 4.81 X10^6/uL (4.0-5.2); Red Cell Distribution Width 13.4 % (11.6-14.8); White Blood Cell Count 11.6 X10^3/uL (4.5-11.0)
[2024-01-26 12:20] LABS: Prothrombin Time 11.1 SECONDS (9.4-12.5)
--- NOTE | 2024-01-26 12:20 | DI.RAD.S_ITS ---
PROCEDURE: XR SACRUM COCCYX MIN 2V INDICATIONS: tailbone pain after syncope TECHNIQUE: 3 views of the sacrum and coccyx acquired. COMPARISON: None. FINDINGS: Bones: Very mild cortical step-off along the anterior margin of the distal sacral segment. Soft tissues: Visualized bowel gas pattern is normal. No suspicious soft tissue densities. IMPRESSION: Very mild cortical step-off along the anterior margin of the distal sacral segment, concerning for fracture. Dictated by: Sachin Jones M.D. on 01/26/2024 at 13:38 Approved by: Sachin Jones M.D. on 01/26/2024 at 13:39
[2024-01-26 12:22] LABS: PTT Partial Thromboplastin Tim 34 SECONDS (25.1-36.5)
[2024-01-26 12:28] LABS: Alanine Aminotransferase 27 IU/L (<35); Albumin 4.3 g/dL (3.5-5.0); Albumin Globulin Ratio 1.3 (1.0-2.8); Alkaline Phosphatase 67 U/L (38-126); Aspartate Aminotransferase 24 IU/L (14-36); BUN Creatinine Ratio 35.8 (6-22); Bilirubin Total 0.4 mg/dL (0.2-1.3); Blood Urea Nitrogen 24 mg/dL (7-17); Calcium 9.7 mg/dL (8.4-10.2); Carbon Dioxide 25 mmol/L (22-32); Chloride 98 mmol/L (98-107); Creatine Kinase 69 U/L (30-135); Estimated Glomerular Filt Rate > 60 mL/min (>60); Globulin 3.4 g/dL (1.7-4.1); Glucose 183 mg/dL (70-100); HEMOLYSIS < 15 (0-50); Lipase 67 U/L (23-300); Magnesium 1.9 mg/dL (1.6-2.3); Potassium 4.6 mmol/L (3.4-5.1); Sodium 134 mmol/L (137-145); Total Protein 7.7 g/dL (6.3-8.2)
[2024-01-26] MEDS: SODIUM CHLORIDE 0.9% 1,000 ML 1000 ML IV (12:34)
[2024-01-26 12:37] LABS: D Dimer 3954 ng/ml (<500)
[2024-01-26 12:40] LABS: NT-proBNP (BNP-Adult 18+) 83 pg/mL (<125); Troponin I < 0.012 ng/mL (0.01-0.034)
--- NOTE | 2024-01-26 13:21 | DI.CT.S_ITS ---
PROCEDURE: CT ANGIO CHEST PE PROTOCOL INDICATIONS: syncope, elevated dimer TECHNIQUE: After the administration of intravenous contrast, 2 mm thick sections acquired from the pulmonary apices to the posterior costophrenic angles. 3-dimensional maximum intensity projection (MIP) coronal and sagittal reformats were then acquired through the thorax. For radiation dose reduction, the following was used: automated exposure control, adjustment of mA and/or kV according to patient size. COMPARISON: None. FINDINGS: Image quality: Diagnostic. Pulmonary arteries: Pulmonary arteries are normal in size, and demonstrate no intraluminal filling defects to suggest central pulmonary embolism. Lower Neck: No enlarged lymph nodes. Thyroid: Right thyroid resection. Axillae: No enlarged lymph nodes. Chest Wall: Unremarkable. Bones: Unremarkable. Lungs and Pleura: No pneumothorax or pleural effusions. No consolidation or suspicious nodules. Heart: Heart size is normal. No pericardial effusion. Three-vessel coronary artery calcifications. Thoracic Vessels: No aortic aneurysm. Mediastinum and [place]: No enlarged lymph nodes. Esophagus: No wall thickening. No hiatal hernia. Upper Abdomen: Visualized upper abdomen solid organs and bowel loops appear normal. IMPRESSION: No pulmonary embolus. No acute cardiopulmonary process. Marked coronary artery calcifications for age. Correlate with risk factors and advise counseling. Consider cardiology referral given extent. Dictated by: Sachin Jones M.D. on 01/26/2024 at 14:07 Approved by: Sachin Jones M.D. on 01/26/2024 at 14:09
== END 2024-01-26 14:32 | disposition home or self-care (01) ==
PROVIDERS: Emergency Provider Emergency Medicine; PCP Nurse Practitioner Family
DX: R55 Syncope and collapse (principal); M53.3 Sacrococcygeal disorders, not elsewhere classified; R07.9 Chest pain, unspecified
CPT/HCPCS: 36415; 71045; 71275; 72220; 80053; 82550; 82962; 83690; 83735; 83880; 84484; 85025; 85379; 85610; 85730; 93005; 93010; 96360; 99284; Q9967

== ENCOUNTER 2024-11-29 07:30 | Outpatient (RCR) | payer OTHER, SELFPAY ==
--- NOTE | 2024-10-03 09:21 | PT.OIE ---
Current Diagnoses Unspecified disorder of synovium and tendon, right upper arm (10/03/24) Past Medical History (Last Reviewed 01/26/24 @ 12:25 by Oralia Jordan DO) Diabetes Hyperlipidemia Hypothyroidism (acquired) Visit Care Team Role Provider Type KIM Vasquez Family Provider Non-Staff Primary Care Provider Specialty: Nursing Address: [address] [place] [address], [place], [address] Email: Silvio Conti MD Attending Provider Non-Staff Referring Provider Specialty: Orthopedic Surgery Address: [facility], [address] [place] [address], [place], [address] Email: Physical Therapy Initial Evaluation PT-OP-A Visit Information Start: 10/02/24 08:10 Freq: Status: Active Protocol: Document 10/03/24 07:28 MB (Rec: 10/03/24 08:06 MB Desktop) Out-Patient Physical Therapy Visit Information Visit Information Visit Type Initial Evaluation Visit Note No KX Visit Start Time 07:28 Visit Stop Time 08:08 Visit Number 1 Number of DRAPERY INSPECTOR Visits 0 Evaluation Information Evaluation Date 10/03/24 PT-OP-B Current Condition Start: 10/02/24 08:10 Freq: Status: Active Protocol: Document 10/03/24 07:28 MB (Rec: 10/03/24 08:06 MB Desktop) Current Condition History of Current Condition Onset Date Possibly more than a year Current Complaints Pain and severe limitation of range right shoulder History of Current Condition Pt suspects that [place] of 2022, she was helping her , who is disabled, and he was in a half-stand, and then a friend stepped in to help and she hurt her back and right shoulder. She had to use a walker for about a month . She thought she had rotator cuff issues. She suffered through it for about a year. 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 She had a x-ray but not a MRI. She had carpal tunnel surgery in the past year on the right and she is right handed. She has trouble putting o a bra. She had PT in the past for her back. Exercises on all fours could not be done d/t right shoulder pain. Pt denies numbness and she does report some tingling in right fingers, possibly from carpal tunnel surgery. is currently transferring himself. Pt ties an apron on for work and this hurts. She also has trouble reaching forward. She states that doctor states she might have a SLAP tear. Pt sleeps in supine and on side, has right shoulder pain at night. Meloxicam and magnesium glycinate are helping her sleep. Now her bladder is awakening her at night and not her shoulder pain. Treatment Goals Patient/Caregiver Goals Improve range and decrease pain PT-OP-C Subjective Start: 10/02/24 08:10 Freq: Status: Active Protocol: Document 10/03/24 07:28 MB (Rec: 10/03/24 08:06 MB Desktop) OP-PT Subjective Patient Comments Patient Comments See history of current condition Patient Questionnaires Quick Dash- Upper Extremity Quick Dash UE Score 36 Quick Dash UE Impairment 40 to 59% Impaired (Score 40- 59) PT-OP-J Posture/Palpation/Skin Start: 10/02/24 08:10 Freq: Status: Active Protocol: Document 10/03/24 07:28 MB (Rec: 10/03/24 08:06 MB Desktop) Posture Evaluation Comments Posture Comments Standing in bare feet: Forward head, rounded shoulders, Dowager's hump, increased body mass upper body and abdominal area, sway back, right shoulder is lower than the left, left shoulder more forward rounded than the right appears stiff in standing, left pelvis more forward, more WB on left leg and keeps left leg straight. Pt tends to keep right arm flexed and drawn up d/t pain. PT-OP-K Range of Motion Start: 10/02/24 08:10 Freq: Status: Active Protocol: Document 10/03/24 07:28 MB (Rec: 10/03/24 08:06 MB Desktop) Cervical Spine Range of Motion Cervical Spine Active Testing Position Standing Flexion 45 Extension 22 Rotation Left 62 Rotation Right 60 Lateral Flexion Left 12 Lateral Flexion Right 8 Comments Pt tends to keep her head about 3-4 deg in extension Shoulder Goniometric Range of Motion Shoulder Left Shoulder ROM WFL No Testing Position Standing Flexion 160 Extension 26 Abduction 162 Internal Rotation Behind Back (text) T8 Comments Anterior shoulder pain with abduction PROM in supine: shoulder in 90 /90, IR normal and loose and ER harder end-feel at 75 deg Right Shoulder ROM WFL No Testing Position Standing Flexion 158 Extension 15 Abduction 140 Internal Rotation Behind Back (text) T12 Comments Anterior shoulder pain with flexion and abduction PROM in supine: shoulder in 90 /90, ER to 45 deg and pt c/o pain and she limits range, IR to 50 deg and she limits range PT-OP-M Strength Start: 10/02/24 08:10 Freq: Status: Active Protocol: Document 10/03/24 07:28 MB (Rec: 10/03/24 08:06 MB Desktop) Shoulder Strength Shoulder Manual Muscle Testing Left Flexion 5 Normal Abduction (C5) 5 Normal Right Flexion 4+ Good+ Abduction (C5) 4+ Good+ Elbow/Forearm Strength Elbow and Forearm Manual Muscle Testing Left Flexion (C6) 5 Normal Extension (C7) 5 Normal Pronation 4+ Good+ Supination 4+ Good+ Right Flexion (C6) 4+ Good+ Extension (C7) 5 Normal Pronation 4 Good Supination 4- Good- Wrist Strength Wrist Manual Muscle Testing Left Flexion (C7) 5 Normal Extension (C6) 5 Normal Right Flexion (C7) 4+ Good+ Extension (C6) 4+ Good+ PT-OP-Q Treatments Start: 10/02/24 08:10 Freq: Status: Active Protocol: Document 10/03/24 07:28 MB (Rec: 10/03/24 08:06 MB Desktop) Therapeutic Exercises Supine Exercises Cane flexion Comments Tried today and pt with LBP, even with knees bent Self-Care/Home Management Treatment Education Patient Education Body Mechanics,Home Exercise Program,Joint Protection,Pain Management,Posture Other Education Ed in proper sleeping position , use of ice/frozen peas, consider walking outside with arm swing for exercises and how to try elliptical since she asks about it taught in diaphragm breathing and pt performs I, log rolling to protect back, pt could not tolerate cane flexion in supine d/t back pain and so did not give for home today PT-OP-T Assessment and Plan Start: 10/02/24 08:10 Freq: Status: Active Protocol: Document 10/03/24 07:28 MB (Rec: 10/03/24 08:06 MB Desktop) Physical Therapy Assessment Rehab Potential Rehabilitation Potential Fair Evaluation Complexity Number of Personal Factors/Comorbidities 1-2 Number of Body Systems Impaired 1-2 Clinical Presentation at Evaluation Evolving Impairments Impairments Coordination,Functional Activities,Functional Mobility ,Pain,Posture,ROM,Soft Tissue Mobility,Strength Goals 4 Impairment Lack of HEP Can Sealer Goal (LTG) Pt will perform progressive HEP with I including posture, flexibility, range, and strengthening exercises to improve pain and progress towards other goals. LTG Duration 8 weeks 3 Impairment Decreased right shoulder ROM Can Sealer Goal (LTG) Pt will present with AROM right shoulder flexion, abduction and IR behind the back similar to the left to improve ability to perform bimanual tasks. LTG Duration 8 weeks 2 Impairment QuickDASH score reflects over 56% impairment Can Sealer Goal (LTG) Pt will present with QuickDASH score reflecting no more than 25% to improve pain and functional use of arm for work . LTG Duration 8 weeks 1 Impairment Pain and limitation reaching behind back with right hand Can Sealer Goal (LTG) Pt will report a 90% improvement in right shoulder pain reaching behind back to fasten bra and tie apron per pt goal. LTG Duration 8 weeks Assessment Summary Assessment Pt is a 54 y/o female reporting post-menopausal changes and history of right shoulder pain since April 2023 when she was assisting to transfer her who had a stroke and the transfer went poorly. 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 Her is now transferring himself for the most part and she is performing most home tasks. She presents with postural changes, limited and painful shoulder range and use, and pt reports that doctor reported she might have a SLAP tear. She had a x-ray per her report and no MRI. Pt will benefit from PT trial to see if manual work, exercises and education improve her symptoms and arm use. If not, she may need to be referred to orthopedist and have further testing. Physical Therapy Plan Frequency and Duration Frequency of Treatment 2x/Week Duration of treatment (weeks) 8 Plan of Care Start Date 10/03/24 Plan of Care End Date 12/05/24 Therapeutic Interventions Therapeutic Interventions Balance Training,Canalithic Repositioning,Home Exercise Program,Joint Mobilizations, Manual Therapy,Neuromuscular Re-education,Patient/Caregiver Education,Self-Care/Home Management,Soft Tissue Mobilization,Taping, Therapeutic Activities, Therapeutic Exercises Modalities Cold Pack/Ice Massage,Electric Stimulation,Hot Packs, Ultrasound Other Referrals/Consults Referrals/Consults Recommended May need right shoulder MRI Next Visit Focus/Plan Next Note Type Treatment Note Next Visit Plan Initiate manual work and postural exercises, consider pulleys
--- NOTE | 2024-10-03 09:21 | PT.OPPOC ---
Physical, Occupational & Speech Therapy At [facility] Current Diagnoses Unspecified disorder of synovium and tendon, right upper arm (10/03/24) Visit Care Team Role Provider Type KIM Vasquez Family Provider Non-Staff Primary Care Provider Specialty: Nursing Address: [address] [place] [address], [place], [address] Email: Silvio Conti MD Attending Provider Non-Staff Referring Provider Specialty: Orthopedic Surgery [facility], [place], [address] Email: Plan Of Care PT-OP-B Current Condition Start: 10/02/24 08:10 Freq: Status: Active Protocol: Document 10/03/24 07:28 MB (Rec: 10/03/24 08:06 MB Desktop) Current Condition History of Current Condition Onset Date Possibly more than a year Current Complaints Pain and severe limitation of range right shoulder History of Current Condition Pt suspects that [place] of 2022, she was helping her , who is disabled, and he was in a half-stand, and then a friend stepped in to help and she hurt her back and right shoulder. She had to use a walker for about a month . She thought she had rotator cuff issues. She suffered through it for about a year. 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 She had a x-ray but not a MRI. She had carpal tunnel surgery in the past year on the right and she is right handed. She has trouble putting o a bra. She had PT in the past for her back. Exercises on all fours could not be done d/t right shoulder pain. Pt denies numbness and she does report some tingling in right fingers, possibly from carpal tunnel surgery. is currently transferring himself. Pt ties an apron on for work and this hurts. She also has trouble reaching forward. She states that doctor states she might have a SLAP tear. Pt sleeps in supine and on side, has right shoulder pain at night. Meloxicam and magnesium glycinate are helping her sleep. Now her bladder is awakening her at night and not her shoulder pain. Treatment Goals Patient/Caregiver Goals Improve range and decrease pain PT-OP-T Assessment and Plan Start: 10/02/24 08:10 Freq: Status: Active Protocol: Document 10/03/24 07:28 MB (Rec: 10/03/24 08:06 MB Desktop) Physical Therapy Assessment Rehab Potential Rehabilitation Potential Fair Evaluation Complexity Number of Personal Factors/Comorbidities 1-2 Number of Body Systems Impaired 1-2 Clinical Presentation at Evaluation Evolving Impairments Impairments Coordination,Functional Activities,Functional Mobility ,Pain,Posture,ROM,Soft Tissue Mobility,Strength Goals 4 Impairment Lack of HEP Residential Goal (LTG) Pt will perform progressive HEP with I including posture, flexibility, range, and strengthening exercises to improve pain and progress towards other goals. LTG Duration 8 weeks 3 Impairment Decreased right shoulder ROM Credit Card Interviewer Goal (LTG) Pt will present with AROM right shoulder flexion, abduction and IR behind the back similar to the left to improve ability to perform bimanual tasks. LTG Duration 8 weeks 2 Impairment QuickDASH score reflects over 56% impairment Credit Card Interviewer Goal (LTG) Pt will present with QuickDASH score reflecting no more than 25% to improve pain and functional use of arm for work . LTG Duration 8 weeks 1 Impairment Pain and limitation reaching behind back with right hand Credit Card Interviewer Goal (LTG) Pt will report a 90% improvement in right shoulder pain reaching behind back to fasten bra and tie apron per pt goal. LTG Duration 8 weeks Assessment Summary Assessment Pt is a 54 y/o female reporting post-menopausal changes and history of right shoulder pain since April 2023 when she was assisting to transfer her who had a stroke and the transfer went poorly. 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 Her is now transferring himself for the most part and she is performing most home tasks. She presents with postural changes, limited and painful shoulder range and use, and pt reports that doctor reported she might have a SLAP tear. She had a x-ray per her report and no MRI. Pt will benefit from PT trial to see if manual work, exercises and education improve her symptoms and arm use. If not, she may need to be referred to orthopedist and have further testing. Physical Therapy Plan Frequency and Duration Frequency of Treatment 2x/Week Duration of treatment (weeks) 8 Plan of Care Start Date 10/03/24 Plan of Care End Date 12/05/24 Therapeutic Interventions Therapeutic Interventions Balance Training,Canalithic Repositioning,Home Exercise Program,Joint Mobilizations, Manual Therapy,Neuromuscular Re-education,Patient/Caregiver Education,Self-Care/Home Management,Soft Tissue Mobilization,Taping, Therapeutic Activities, Therapeutic Exercises Modalities Cold Pack/Ice Massage,Electric Stimulation,Hot Packs, Ultrasound Other Referrals/Consults Referrals/Consults Recommended May need right shoulder MRI Next Visit Focus/Plan Next Note Type Treatment Note Next Visit Plan Initiate manual work and postural exercises, consider pulleys Plan of Care Dates Plan of Care Start Date 10/03/24 Plan of Care End Date 12/05/24 Electronically Signed by: Frannie Miller, PT 10/03/24 0921 If you are in agreement with this Plan of Care, please return a signed and dated copy. I have reviewed this Plan of Care and certify that the skilled therapy services above are required to meet the patient?s needs. Physician Signature Date Printed Name and Credentials Clinical Instructor Signature Printed Name and Credentials
--- NOTE | 2024-10-10 15:12 | PT.OTN ---
Current Diagnoses Unspecified disorder of synovium and tendon, right upper arm (10/10/24) Physical Therapy Treatment Note PT-OP-A Visit Information Start: 10/02/24 08:10 Freq: Status: Active Protocol: Document 10/10/24 14:31 SP (Rec: 10/10/24 15:24 SP [id number]) Out-Patient Physical Therapy Visit Information Visit Information Visit Type Treatment Note Visit Start Time 14:31 Visit Stop Time 15:12 Visit Number 2 Number of SERVICE STATION CONSOLE OPERATOR Visits 1 Evaluation Information Evaluation Date 10/03/24 PT-OP-B Current Condition Start: 10/02/24 08:10 Freq: Status: Active Protocol: Document 10/03/24 07:28 MB (Rec: 10/03/24 08:06 MB Desktop) Current Condition History of Current Condition Onset Date Possibly more than a year Current Complaints Pain and severe limitation of range right shoulder History of Current Condition Pt suspects that [place] of 2022, she was helping her , who is disabled, and he was in a half-stand, and then a friend stepped in to help and she hurt her back and right shoulder. She had to use a walker for about a month . She thought she had rotator cuff issues. She suffered through it for about a year. 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 She had a x-ray but not a MRI. She had carpal tunnel surgery in the past year on the right and she is right handed. She has trouble putting o a bra. She had PT in the past for her back. Exercises on all fours could not be done d/t right shoulder pain. Pt denies numbness and she does report some tingling in right fingers, possibly from carpal tunnel surgery. is currently transferring himself. Pt ties an apron on for work and this hurts. She also has trouble reaching forward. She states that doctor states she might have a SLAP tear. Pt sleeps in supine and on side, has right shoulder pain at night. Meloxicam and magnesium glycinate are helping her sleep. Now her bladder is awakening her at night and not her shoulder pain. Treatment Goals Patient/Caregiver Goals Improve range and decrease pain PT-OP-C Subjective Start: 10/02/24 08:10 Freq: Status: Active Protocol: Document 10/10/24 14:31 SP (Rec: 10/10/24 15:24 SP [id number]) OP-PT Subjective Patient Comments Patient Comments Pt reports was carrying something in her hand at work with RUE and caught hand on corner and quickly had sharp pain and pop feeling anterior R shld. Has been babying it, icing, using Arnica oil. Can't put bra, tying apron or full extension and laying down R UE unsupported causes pain. PT-OP-J Posture/Palpation/Skin Start: 10/02/24 08:10 Freq: Status: Active Protocol: Document 10/03/24 07:28 MB (Rec: 10/03/24 08:06 MB Desktop) Posture Evaluation Comments Posture Comments Standing in bare feet: Forward head, rounded shoulders, Dowager's hump, increased body mass upper body and abdominal area, sway back, right shoulder is lower than the left, left shoulder more forward rounded than the right appears stiff in standing, left pelvis more forward, more WB on left leg and keeps left leg straight. Pt tends to keep right arm flexed and drawn up d/t pain. PT-OP-K Range of Motion Start: 10/02/24 08:10 Freq: Status: Active Protocol: Document 10/03/24 07:28 MB (Rec: 10/03/24 08:06 MB Desktop) Cervical Spine Range of Motion Cervical Spine Active Testing Position Standing Flexion 45 Extension 22 Rotation Left 62 Rotation Right 60 Lateral Flexion Left 12 Lateral Flexion Right 8 Comments Pt tends to keep her head about 3-4 deg in extension Shoulder Goniometric Range of Motion Shoulder Left Shoulder ROM WFL No Testing Position Standing Flexion 160 Extension 26 Abduction 162 Internal Rotation Behind Back (text) T8 Comments Anterior shoulder pain with abduction PROM in supine: shoulder in 90 /90, IR normal and loose and ER harder end-feel at 75 deg Right Shoulder ROM WFL No Testing Position Standing Flexion 158 Extension 15 Abduction 140 Internal Rotation Behind Back (text) T12 Comments Anterior shoulder pain with flexion and abduction PROM in supine: shoulder in 90 /90, ER to 45 deg and pt c/o pain and she limits range, IR to 50 deg and she limits range PT-OP-M Strength Start: 10/02/24 08:10 Freq: Status: Active Protocol: Document 10/03/24 07:28 MB (Rec: 10/03/24 08:06 MB Desktop) Shoulder Strength Shoulder Manual Muscle Testing Left Flexion 5 Normal Abduction (C5) 5 Normal Right Flexion 4+ Good+ Abduction (C5) 4+ Good+ Elbow/Forearm Strength Elbow and Forearm Manual Muscle Testing Left Flexion (C6) 5 Normal Extension (C7) 5 Normal Pronation 4+ Good+ Supination 4+ Good+ Right Flexion (C6) 4+ Good+ Extension (C7) 5 Normal Pronation 4 Good Supination 4- Good- Wrist Strength Wrist Manual Muscle Testing Left Flexion (C7) 5 Normal Extension (C6) 5 Normal Right Flexion (C7) 4+ Good+ Extension (C6) 4+ Good+ PT-OP-Q Treatments Start: 10/02/24 08:10 Freq: Status: Active Protocol: Document 10/10/24 14:31 SP (Rec: 10/10/24 15:24 SP [id number]) Therapeutic Exercises Supine Exercises Cane HABD & ER Supine Exercise Name added to HEP with HO Side right Resistance L help R Equipment Used rolled towel under humerus during ER Reps/Minutes 10 reps Comments cued pnfree range Cane flexion Supine Exercise Name Serratus Press then FF 143 deg before intolerant pain. Side right Resistance L help R- cane AAROM Equipment Used knees supported by wedge Reps/Minutes 10 reps Comments cued slow, pnfree range, back ok Sitting Exercises Table Slides Sitting Exercise Name added to HEP: FF, HABD, ER Side right Resistance towel under hand Reps/Minutes 5 reps Comments cued upright posture GH AROM- pnfree range Manual Therapy Treatment Consent Patient gave verbal consent for manual Yes treatment Taping Ktaping Body Location R shld Treatment Focus proximal humerus stability Skin Inspection normal color texture (is well know to taping self) Comments 3 strips: ant shd>posterior GH jt, Distal deltoid to scap spine, distal deltoid posterior to lower medial border scap. Good feedback response R arms feel more supportive. Took pic on pts phone. Other Other Manual Treatments Pt positional releases: hooklying BLEs on wedge/pillow under RUE/1 pillow under head . gentle light-minimal pressure STMs to R shld pec, bicep, UT, LS, deltoid. R GH Jt inferior/posterior glides, PROM FF, ABD, ER tolerant pnfree range with feedback response. Ktaping (see above) PT-OP-R Modalities Start: 10/10/24 15:25 Freq: Status: Active Protocol: Document 10/10/24 14:31 SP (Rec: 10/10/24 15:26 SP [id number]) Hot Pack/Cold Pack Treatment R shld Patient Position Sitting Patient Tolerance Good Comments R shld 3 minutes while printed HEP HOs PT-OP-T Assessment and Plan Start: 10/02/24 08:10 Freq: Status: Active Protocol: Document 10/10/24 14:31 SP (Rec: 10/10/24 15:24 SP [id number]) Physical Therapy Assessment Goals 4 Impairment Lack of HEP Snf Goal (LTG) Pt will perform progressive HEP with I including posture, flexibility, range, and strengthening exercises to improve pain and progress towards other goals. LTG Duration 8 weeks 3 Impairment Decreased right shoulder ROM Tree Specialist Goal (LTG) Pt will present with AROM right shoulder flexion, abduction and IR behind the back similar to the left to improve ability to perform bimanual tasks. LTG Duration 8 weeks 2 Impairment QuickDASH score reflects over 56% impairment Tree Specialist Goal (LTG) Pt will present with QuickDASH score reflecting no more than 25% to improve pain and functional use of arm for work . LTG Duration 8 weeks 1 Impairment Pain and limitation reaching behind back with right hand Snf Goal (LTG) Pt will report a 90% improvement in right shoulder pain reaching behind back to fasten bra and tie apron per pt goal. LTG Duration 8 weeks Assessment Summary Assessment Pt good feedback response to manual. Best R UE supported on pillow (does home sleeping). Trialed hooklying cane protraction (serratus press), FF, HABD and ER today with reports better today, gave HOs hand written instruction found fine. Initiated seated version same table slides AAROM FF, HABD (1/4 arc),and ER with good feedback painfree range ok. Instruction self STMs ball wall in pillow case posterior scap R with good response massage. Provided Ktaping to R humerus proximal support found comforting then CP for few minutes while printed HOs for home carryover . Pt stated felt much better end tx. Physical Therapy Plan Frequency and Duration Frequency of Treatment 2x/Week Duration of treatment (weeks) 8 Plan of Care Start Date 10/03/24 Plan of Care End Date 12/05/24 Therapeutic Interventions Therapeutic Interventions Balance Training,Canalithic Repositioning,Home Exercise Program,Joint Mobilizations, Manual Therapy,Neuromuscular Re-education,Patient/Caregiver Education,Self-Care/Home Management,Soft Tissue Mobilization,Taping, Therapeutic Activities, Therapeutic Exercises Modalities Cold Pack/Ice Massage,Electric Stimulation,Hot Packs, Ultrasound Other Referrals/Consults Referrals/Consults Recommended May need right shoulder MRI Next Visit Focus/Plan Next Note Type Treatment Note Next Visit Plan Continue manual work, recheck AAROM cane vs table slides response in PT pnfree range, self massage and Ktaping R shld. Continue PT POC: postural exercises, consider pulleys
--- NOTE | 2024-10-12 08:16 | PT.OTN ---
Current Diagnoses Unspecified disorder of synovium and tendon, right upper arm (10/12/24) Physical Therapy Treatment Note PT-OP-A Visit Information Start: 10/02/24 08:10 Freq: Status: Active Protocol: Document 10/12/24 07:35 PG (Rec: 10/12/24 09:52 PG Laptop) Out-Patient Physical Therapy Visit Information Visit Information Visit Type Treatment Note Visit Note Anya WILDER led tx with permission of pt and direct supervision of Tamie PARKER. Visit Start Time 07:35 Visit Stop Time 08:16 Visit Number 3 Number of COMPLIANCE LEAD Visits 2 Evaluation Information Evaluation Date 10/03/24 PT-OP-B Current Condition Start: 10/02/24 08:10 Freq: Status: Active Protocol: Document 10/03/24 07:28 MB (Rec: 10/03/24 08:06 MB Desktop) Current Condition History of Current Condition Onset Date Possibly more than a year Current Complaints Pain and severe limitation of range right shoulder History of Current Condition Pt suspects that [place] of 2022, she was helping her , who is disabled, and he was in a half-stand, and then a friend stepped in to help and she hurt her back and right shoulder. She had to use a walker for about a month . She thought she had rotator cuff issues. She suffered through it for about a year. 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 She had a x-ray but not a MRI. She had carpal tunnel surgery in the past year on the right and she is right handed. She has trouble putting o a bra. She had PT in the past for her back. Exercises on all fours could not be done d/t right shoulder pain. Pt denies numbness and she does report some tingling in right fingers, possibly from carpal tunnel surgery. is currently transferring himself. Pt ties an apron on for work and this hurts. She also has trouble reaching forward. She states that doctor states she might have a SLAP tear. Pt sleeps in supine and on side, has right shoulder pain at night. Meloxicam and magnesium glycinate are helping her sleep. Now her bladder is awakening her at night and not her shoulder pain. Treatment Goals Patient/Caregiver Goals Improve range and decrease pain PT-OP-C Subjective Start: 10/02/24 08:10 Freq: Status: Active Protocol: Document 10/12/24 07:35 PG (Rec: 10/12/24 09:52 PG Laptop) OP-PT Subjective Patient Comments Patient Comments Feeling okay, notices her R shoulder becomes tight after driving, does mindlessly try to massage her pec muscle. HEP going well, finds ER/IR is the most difficult. Sleeps with ice on to help her relieve pain and allow her to fall asleep. PT-OP-J Posture/Palpation/Skin Start: 10/02/24 08:10 Freq: Status: Active Protocol: Document 10/03/24 07:28 MB (Rec: 10/03/24 08:06 MB Desktop) Posture Evaluation Comments Posture Comments Standing in bare feet: Forward head, rounded shoulders, Dowager's hump, increased body mass upper body and abdominal area, sway back, right shoulder is lower than the left, left shoulder more forward rounded than the right appears stiff in standing, left pelvis more forward, more WB on left leg and keeps left leg straight. Pt tends to keep right arm flexed and drawn up d/t pain. PT-OP-K Range of Motion Start: 10/02/24 08:10 Freq: Status: Active Protocol: Document 10/03/24 07:28 MB (Rec: 10/03/24 08:06 MB Desktop) Cervical Spine Range of Motion Cervical Spine Active Testing Position Standing Flexion 45 Extension 22 Rotation Left 62 Rotation Right 60 Lateral Flexion Left 12 Lateral Flexion Right 8 Comments Pt tends to keep her head about 3-4 deg in extension Shoulder Goniometric Range of Motion Shoulder Left Shoulder ROM WFL No Testing Position Standing Flexion 160 Extension 26 Abduction 162 Internal Rotation Behind Back (text) T8 Comments Anterior shoulder pain with abduction PROM in supine: shoulder in 90 /90, IR normal and loose and ER harder end-feel at 75 deg Right Shoulder ROM WFL No Testing Position Standing Flexion 158 Extension 15 Abduction 140 Internal Rotation Behind Back (text) T12 Comments Anterior shoulder pain with flexion and abduction PROM in supine: shoulder in 90 /90, ER to 45 deg and pt c/o pain and she limits range, IR to 50 deg and she limits range PT-OP-M Strength Start: 10/02/24 08:10 Freq: Status: Active Protocol: Document 10/03/24 07:28 MB (Rec: 10/03/24 08:06 MB Desktop) Shoulder Strength Shoulder Manual Muscle Testing Left Flexion 5 Normal Abduction (C5) 5 Normal Right Flexion 4+ Good+ Abduction (C5) 4+ Good+ Elbow/Forearm Strength Elbow and Forearm Manual Muscle Testing Left Flexion (C6) 5 Normal Extension (C7) 5 Normal Pronation 4+ Good+ Supination 4+ Good+ Right Flexion (C6) 4+ Good+ Extension (C7) 5 Normal Pronation 4 Good Supination 4- Good- Wrist Strength Wrist Manual Muscle Testing Left Flexion (C7) 5 Normal Extension (C6) 5 Normal Right Flexion (C7) 4+ Good+ Extension (C6) 4+ Good+ PT-OP-Q Treatments Start: 10/02/24 08:10 Freq: Status: Active Protocol: Document 10/12/24 07:35 PG (Rec: 10/12/24 09:52 PG Laptop) Therapeutic Exercises Supine Exercises scapular retraction Supine Exercise Name Trialed Equipment Used towel roll between scapulas Reps/Minutes x5 Comments cued to squeeze shldr blades together Cane HABD & ER Supine Exercise Name Reviewed Side right Resistance L help R Equipment Used rolled towel under humerus during ER Reps/Minutes 10 reps Comments cued pnfree range, cues for elbows at side w ER Cane flexion Supine Exercise Name Reviewed: Serratus Press then FF Side right Resistance L help R- cane AAROM Equipment Used knees supported by wedge Reps/Minutes 10 reps Comments cued slow, pnfree rng, Serratus press: cued elbow ext and press twrd cristhian Sitting Exercises Scapula reset Sitting Exercise Name Rolling shoulders back Side bilateral Reps/Minutes x5 Comments cued for posture, chin tuck Scapular retraction Sitting Exercise Name Added to HEP, HO denied Reps/Minutes x10 Comments cued for no UT recruitment, chin tuck, posture Manual Therapy Treatment Consent Patient gave verbal consent for manual Yes treatment Taping Ktaping Body Location R shld Treatment Focus proximal humerus stability Skin Inspection normal color texture (is well know to taping self) Comments 3 strips: ant shd>posterior GH jt, Distal deltoid spilt a/p UT. , distal deltoid posterior to lower medial border scap. Good feedback response R arms feel more supportive. Took pic on pts phone. Other Other Manual Treatments Pt positional releases: hooklying BLEs on wedge/pillow under RUE/2 pillows under head. gentle light-minimal pressure STMs to R shld pec, bicep, UT, LS, deltoid. PROM FF, ER tolerant pnfree range with feedback response. Ktaping (see above) PT-OP-R Modalities Start: 10/10/24 15:25 Freq: Status: Active Protocol: Document 10/10/24 14:31 SP (Rec: 10/10/24 15:26 SP [id number]) Hot Pack/Cold Pack Treatment R shld Patient Position Sitting Patient Tolerance Good Comments R shld 3 minutes while printed HEP HOs PT-OP-T Assessment and Plan Start: 10/02/24 08:10 Freq: Status: Active Protocol: Document 10/12/24 07:35 PG (Rec: 10/12/24 09:52 PG Laptop) Physical Therapy Assessment Goals 4 Impairment Lack of HEP Milk Runner Goal (LTG) Pt will perform progressive HEP with I including posture, flexibility, range, and strengthening exercises to improve pain and progress towards other goals. LTG Duration 8 weeks 3 Impairment Decreased right shoulder ROM Milk Runner Goal (LTG) Pt will present with AROM right shoulder flexion, abduction and IR behind the back similar to the left to improve ability to perform bimanual tasks. LTG Duration 8 weeks 2 Impairment QuickDASH score reflects over 56% impairment Milk Runner Goal (LTG) Pt will present with QuickDASH score reflecting no more than 25% to improve pain and functional use of arm for work . LTG Duration 8 weeks 1 Impairment Pain and limitation reaching behind back with right hand Group Home Goal (LTG) Pt will report a 90% improvement in right shoulder pain reaching behind back to fasten bra and tie apron per pt goal. LTG Duration 8 weeks Assessment Summary Assessment Continued with light STM, utilized feedback from pt on pressure. Reviewed cane HEP, pt required cues for form with ER; elbows tucked to side and Serratus press; elbows extended and press through shoulders to cristhian. Did a good job staying in pnfree range. Instructed pt in shoulder rolls to help reset scapula's and initiate mobility in g/h joint. Added seated scapula retraction to HEP to work on postural stability. Physical Therapy Plan Frequency and Duration Frequency of Treatment 2x/Week Duration of treatment (weeks) 8 Plan of Care Start Date 10/03/24 Plan of Care End Date 12/05/24 Therapeutic Interventions Therapeutic Interventions Balance Training,Canalithic Repositioning,Home Exercise Program,Joint Mobilizations, Manual Therapy,Neuromuscular Re-education,Patient/Caregiver Education,Self-Care/Home Management,Soft Tissue Mobilization,Taping, Therapeutic Activities, Therapeutic Exercises Modalities Cold Pack/Ice Massage,Electric Stimulation,Hot Packs, Ultrasound Other Referrals/Consults Referrals/Consults Recommended May need right shoulder MRI Next Visit Focus/Plan Next Note Type Treatment Note Next Visit Plan Next: Trial pulleys, Review HEP table slides, Instruct Self STM with tennis ball/wall ? Continue manual work Continue PT POC: postural exercises, consider pulleys
--- NOTE | 2024-10-19 08:17 | PT.OTN ---
Current Diagnoses Unspecified disorder of synovium and tendon, right upper arm (10/19/24) Physical Therapy Treatment Note PT-OP-A Visit Information Start: 10/02/24 08:10 Freq: Status: Active Protocol: Document 10/19/24 07:30 PG (Rec: 10/19/24 08:21 PG Laptop) Out-Patient Physical Therapy Visit Information Visit Information Visit Type Treatment Note Visit Note Anya WILDER led tx with permission of pt and direct supervision of Tamie PARKER. Visit Start Time 07:30 Visit Stop Time 08:17 Visit Number 4 Number of POOL MANAGER Visits 3 Evaluation Information Evaluation Date 10/03/24 PT-OP-B Current Condition Start: 10/02/24 08:10 Freq: Status: Active Protocol: Document 10/03/24 07:28 MB (Rec: 10/03/24 08:06 MB Desktop) Current Condition History of Current Condition Onset Date Possibly more than a year Current Complaints Pain and severe limitation of range right shoulder History of Current Condition Pt suspects that [place] of 2022, she was helping her , who is disabled, and he was in a half-stand, and then a friend stepped in to help and she hurt her back and right shoulder. She had to use a walker for about a month . She thought she had rotator cuff issues. She suffered through it for about a year. 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 She had a x-ray but not a MRI. She had carpal tunnel surgery in the past year on the right and she is right handed. She has trouble putting o a bra. She had PT in the past for her back. Exercises on all fours could not be done d/t right shoulder pain. Pt denies numbness and she does report some tingling in right fingers, possibly from carpal tunnel surgery. is currently transferring himself. Pt ties an apron on for work and this hurts. She also has trouble reaching forward. She states that doctor states she might have a SLAP tear. Pt sleeps in supine and on side, has right shoulder pain at night. Meloxicam and magnesium glycinate are helping her sleep. Now her bladder is awakening her at night and not her shoulder pain. Treatment Goals Patient/Caregiver Goals Improve range and decrease pain PT-OP-C Subjective Start: 10/02/24 08:10 Freq: Status: Active Protocol: Document 10/19/24 07:30 PG (Rec: 10/19/24 08:21 PG Laptop) OP-PT Subjective Patient Comments Patient Comments Pt is doing well. Been compliant w her HEP and able to incorporate it into her chores like washing her truck. Been busy this last week; did well with weed eating, taking down cooler top of fridge, installed storm door w , but no heavy lifting . Pt's been able to clasp her bra more mindlessly lately. KT tape from prev tx caused skin irritation, pt did remove . PT-OP-J Posture/Palpation/Skin Start: 10/02/24 08:10 Freq: Status: Active Protocol: Document 10/03/24 07:28 MB (Rec: 10/03/24 08:06 MB Desktop) Posture Evaluation Comments Posture Comments Standing in bare feet: Forward head, rounded shoulders, Dowager's hump, increased body mass upper body and abdominal area, sway back, right shoulder is lower than the left, left shoulder more forward rounded than the right appears stiff in standing, left pelvis more forward, more WB on left leg and keeps left leg straight. Pt tends to keep right arm flexed and drawn up d/t pain. PT-OP-K Range of Motion Start: 10/02/24 08:10 Freq: Status: Active Protocol: Document 10/03/24 07:28 MB (Rec: 10/03/24 08:06 MB Desktop) Cervical Spine Range of Motion Cervical Spine Active Testing Position Standing Flexion 45 Extension 22 Rotation Left 62 Rotation Right 60 Lateral Flexion Left 12 Lateral Flexion Right 8 Comments Pt tends to keep her head about 3-4 deg in extension Shoulder Goniometric Range of Motion Shoulder Left Shoulder ROM WFL No Testing Position Standing Flexion 160 Extension 26 Abduction 162 Internal Rotation Behind Back (text) T8 Comments Anterior shoulder pain with abduction PROM in supine: shoulder in 90 /90, IR normal and loose and ER harder end-feel at 75 deg Right Shoulder ROM WFL No Testing Position Standing Flexion 158 Extension 15 Abduction 140 Internal Rotation Behind Back (text) T12 Comments Anterior shoulder pain with flexion and abduction PROM in supine: shoulder in 90 /90, ER to 45 deg and pt c/o pain and she limits range, IR to 50 deg and she limits range PT-OP-M Strength Start: 10/02/24 08:10 Freq: Status: Active Protocol: Document 10/03/24 07:28 MB (Rec: 10/03/24 08:06 MB Desktop) Shoulder Strength Shoulder Manual Muscle Testing Left Flexion 5 Normal Abduction (C5) 5 Normal Right Flexion 4+ Good+ Abduction (C5) 4+ Good+ Elbow/Forearm Strength Elbow and Forearm Manual Muscle Testing Left Flexion (C6) 5 Normal Extension (C7) 5 Normal Pronation 4+ Good+ Supination 4+ Good+ Right Flexion (C6) 4+ Good+ Extension (C7) 5 Normal Pronation 4 Good Supination 4- Good- Wrist Strength Wrist Manual Muscle Testing Left Flexion (C7) 5 Normal Extension (C6) 5 Normal Right Flexion (C7) 4+ Good+ Extension (C6) 4+ Good+ PT-OP-Q Treatments Start: 10/02/24 08:10 Freq: Status: Active Protocol: Document 10/19/24 07:30 PG (Rec: 10/19/24 08:21 PG Laptop) Therapeutic Exercises Supine Exercises Cane HABD & ER Supine Exercise Name Reviewed Side right Resistance L help R Equipment Used rolled towel under humerus during ER Reps/Minutes 10 reps Comments cued pnfree range, cues for elbows at side w ER Cane flexion Supine Exercise Name Reviewed: Serratus Press then FF Side right Resistance L help R- cane AAROM Equipment Used knees supported by wedge Reps/Minutes 10 reps Comments cued slow, pnfree rng, Serratus press: cued elbow ext and press twrd cristhian Sidelying Exercises Sleeper Stretch Sidelying Exercise Name Sustained IR 45deg > 60deg 4- 5pn Side right Reps/Minutes 10sec Comments cued for pushing on forearm for stretch Sitting Exercises Eccentric FF/Abd Sitting Exercise Name Rear facing Side right Resistance lvl 2 Reps/Minutes 5x Comments HEP, declined HO Pulleys Sitting Exercise Name FF, Scaption, Abduction Side bilateral Resistance AAROM Equipment Used pulleys Reps/Minutes 10x each Comments cued for posture IR towel stretch Sitting Exercise Name Trialed 7-8pn with Side right Resistance towel Reps/Minutes 20sec Comments cued to aim for lumbar spine, Manual Therapy Treatment Consent Patient gave verbal consent for manual Yes treatment Other Other Manual Treatments xx PT-OP-R Modalities Start: 10/10/24 15:25 Freq: Status: Active Protocol: Document 10/10/24 14:31 SP (Rec: 10/10/24 15:26 SP [id number]) Hot Pack/Cold Pack Treatment R shld Patient Position Sitting Patient Tolerance Good Comments R shld 3 minutes while printed HEP HOs PT-OP-T Assessment and Plan Start: 10/02/24 08:10 Freq: Status: Active Protocol: Document 10/19/24 07:30 PG (Rec: 10/19/24 08:21 PG Laptop) Physical Therapy Assessment Goals 4 Impairment Lack of HEP Intermediate Goal (LTG) Pt will perform progressive HEP with I including posture, flexibility, range, and strengthening exercises to improve pain and progress towards other goals. LTG Duration 8 weeks 3 Impairment Decreased right shoulder ROM Intermediate Goal (LTG) Pt will present with AROM right shoulder flexion, abduction and IR behind the back similar to the left to improve ability to perform bimanual tasks. LTG Duration 8 weeks 2 Impairment QuickDASH score reflects over 56% impairment Intermediate Goal (LTG) Pt will present with QuickDASH score reflecting no more than 25% to improve pain and functional use of arm for work . LTG Duration 8 weeks 1 Impairment Pain and limitation reaching behind back with right hand Daytime Babysitter Goal (LTG) Pt will report a 90% improvement in right shoulder pain reaching behind back to fasten bra and tie apron per pt goal. 10/19/24: Didn't have to think about it this morning LTG Duration 8 weeks Assessment Summary Assessment xx Physical Therapy Plan Frequency and Duration Frequency of Treatment 2x/Week Duration of treatment (weeks) 8 Plan of Care Start Date 10/03/24 Plan of Care End Date 12/05/24 Therapeutic Interventions Therapeutic Interventions Balance Training,Canalithic Repositioning,Home Exercise Program,Joint Mobilizations, Manual Therapy,Neuromuscular Re-education,Patient/Caregiver Education,Self-Care/Home Management,Soft Tissue Mobilization,Taping, Therapeutic Activities, Therapeutic Exercises Modalities Cold Pack/Ice Massage,Electric Stimulation,Hot Packs, Ultrasound Other Referrals/Consults Referrals/Consults Recommended May need right shoulder MRI Next Visit Focus/Plan Next Note Type Treatment Note Next Visit Plan Next: Pt request rows/ext check next time, Review HEP table slides, Instruct Self STM with tennis ball/wall? Continue manual work Continue PT POC: postural exercises, consider pulleys
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
--- NOTE | 2024-11-14 10:42 | PT.OTN ---
Current Diagnoses Unspecified disorder of synovium and tendon, right upper arm (11/14/24) Physical Therapy Treatment Note PT-OP-A Visit Information Start: 10/02/24 08:10 Freq: Status: Active Protocol: Document 11/14/24 09:52 SP (Rec: 11/14/24 10:55 SP [id number]) Out-Patient Physical Therapy Visit Information Visit Information Visit Type Treatment Note Visit Note PN due 12/01/24, POC update by 12/05/24. Visit Start Time 09:52 Visit Stop Time 10:42 Visit Number 7 (next PN by 12/01) Number of MOLD SPRAYER Visits 1 Evaluation Information Evaluation Date 10/03/24 Precautions Precautions *sensitivity to adhesive, Ktape in past Rshld. PT-OP-B Current Condition Start: 10/02/24 08:10 Freq: Status: Active Protocol: Document 10/03/24 07:28 MB (Rec: 10/03/24 08:06 MB Desktop) Current Condition History of Current Condition Onset Date Possibly more than a year Current Complaints Pain and severe limitation of range right shoulder History of Current Pt suspects that Sebastian of 2022, she was helping her Condition , who is disabled, and he was in a half-stand, and then a friend stepped in to help and she hurt her back and right shoulder. She had to use a walker for about a month. She thought she had rotator cuff issues. She suffered through it for about a year. 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 She had a x-ray but not a MRI. She had carpal tunnel surgery in the past year on the right and she is right handed. She has trouble putting o a bra. She had PT in the past for her back. Exercises on all fours could not be done d/t right shoulder pain . Pt denies numbness and she does report some tingling in right fingers, possibly from carpal tunnel surgery. is currently transferring himself. Pt ties an apron on for work and this hurts. She also has trouble reaching forward. She states that doctor states she might have a SLAP tear. Pt sleeps in supine and on side, has right shoulder pain at night. Meloxicam and magnesium glycinate are helping her sleep. Now her bladder is awakening her at night and not her shoulder pain. Treatment Goals Patient/Caregiver Improve range and decrease pain Goals PT-OP-C Subjective Start: 10/02/24 08:10 Freq: Status: Active Protocol: Document 11/14/24 09:52 SP (Rec: 11/14/24 10:55 SP [id number]) OP-PT Subjective Patient Comments Patient Comments Pt reports still really sore still, hasn't done any outside house work but busy at work . She is using pulleys at home, had to shorten strap about 6 for proper fit. Is going make an appt with new ortho Dr Calzada individual practice for further imaging on R shld (suggestion from friend). Doesn't want MRI at this time but wants to know what's going on in R shld. PT has been helping with improving activity level and strategies for recovery, eg CP modify way does things. She can't flex R elbow hand to face after weed-eats lawn, tries to utilize legs wt shift, scapular muscles so no over use R shld. She utilized CP after activities for recovery with good response. She modified yard work activities, looking into yard wagon to transport items needed. PT-OP-J Posture/Palpation/Skin Start: 10/02/24 08:10 Freq: Status: Active Protocol: Document 10/03/24 07:28 MB (Rec: 10/03/24 08:06 MB Desktop) Posture Evaluation Comments Posture Comments Standing in bare feet: Forward head, rounded shoulders, Dowager's hump, increased body mass upper body and abdominal area, sway back, right shoulder is lower than the left, left shoulder more forward rounded than the right appears stiff in standing, left pelvis more forward, more WB on left leg and keeps left leg straight. Pt tends to keep right arm flexed and drawn up d/t pain. PT-OP-K Range of Motion Start: 10/02/24 08:10 Freq: Status: Active Protocol: Document 10/03/24 07:28 MB (Rec: 10/03/24 08:06 MB Desktop) Cervical Spine Range of Motion Cervical Spine Active Testing Position Standing Flexion 45 Extension 22 Rotation Left 62 Rotation Right 60 Lateral Flexion Left 12 Lateral Flexion 8 Right Comments Pt tends to keep her head about 3-4 deg in extension Shoulder Goniometric Range of Motion Shoulder Left Shoulder ROM WFL No Testing Position Standing Flexion 160 Extension 26 Abduction 162 Internal Rotation T8 Behind Back (text) Comments Anterior shoulder pain with abduction PROM in supine: shoulder in 90/90, IR normal and loose and ER harder end-feel at 75 deg Right Shoulder ROM WFL No Testing Position Standing Flexion 158 Extension 15 Abduction 140 Internal Rotation T12 Behind Back (text) Comments Anterior shoulder pain with flexion and abduction PROM in supine: shoulder in 90/90, ER to 45 deg and pt c/o pain and she limits range, IR to 50 deg and she limits range PT-OP-M Strength Start: 10/02/24 08:10 Freq: Status: Active Protocol: Document 10/03/24 07:28 MB (Rec: 10/03/24 08:06 MB Desktop) Shoulder Strength Shoulder Manual Muscle Testing Left Flexion 5 Normal Abduction (C5) 5 Normal Right Flexion 4+ Good+ Abduction (C5) 4+ Good+ Elbow/Forearm Strength Elbow and Forearm Manual Muscle Testing Left Flexion (C6) 5 Normal Extension (C7) 5 Normal Pronation 4+ Good+ Supination 4+ Good+ Right Flexion (C6) 4+ Good+ Extension (C7) 5 Normal Pronation 4 Good Supination 4- Good- Wrist Strength Wrist Manual Muscle Testing Left Flexion (C7) 5 Normal Extension (C6) 5 Normal Right Flexion (C7) 4+ Good+ Extension (C6) 4+ Good+ PT-OP-Q Treatments Start: 10/02/24 08:10 Freq: Status: Active Protocol: Document 11/14/24 09:52 SP (Rec: 11/14/24 10:55 SP [id number]) Therapeutic Exercises Supine Exercises Pool noodle on plinth Supine Exercise Name Reviewed: pec stretch, FF, HABD, Side bilateral Reps/Minutes 10 reps tolerance Comments Pect positional release with opposite hand Sidelying Exercises R shld Sidelying Exercise Trialed in PT: Abduction, ER, HABD added to HEP Name declined HO Side right Reps/Minutes 5 reps Comments occ cues tactil Scap stab Sitting Exercises Pulleys Sitting Exercise Reviewed: FF, ABD, Scaption Name Side bilateral Reps/Minutes 2x 10 reps each Standing Exercises IR AAROM/Stretch Standing Exercise added to HEP declined HO Name Side right Resistance L helps R Reps/Minutes 2 breath or 5 SH Comments cued not uncomfortable pain, but all range progression Manual Therapy Treatment Consent Patient gave verbal Yes consent for manual treatment Soft Tissue Mobilization R shld Body Location R pec major, Minor, prox bicep, distal pec, distal coracobrachalis Mobilization Type Rolling,Sustained Pressure,Other Comments gentle Broad STms and MWM with breath Joint Mobilizations R Comments 1-2 ribrecoil with breath R shld Joint GH JT Direction P<>A, sup<>inf Comments Feels good Other Other Manual Pt prone: rib recoil muscle energy technique for rib Treatments mobility, increased tension right greater than left, STM upper traps, infra with more tension left infra Self-Care/Home Management Treatment Education Patient Education Body Mechanics,Home Exercise Program,Joint Protection, Pain Management,Safety Other Education Time spent alignment sleeping SL, use legs during weed eating for decrease strain on R shld. Use CP for recovery. Added IR AAROM with towel, L SL R shld ABD, ER, HABD within low/pnfree range for strength/ROM progression tolerates. PT-OP-R Modalities Start: 10/10/24 15:25 Freq: Status: Active Protocol: Document 11/14/24 09:52 SP (Rec: 11/14/24 10:55 SP [id number]) Hot Pack/Cold Pack Treatment R shld Patient Position Sitting Patient Tolerance Good Comments R shld 10 min PT-OP-T Assessment and Plan Start: 10/02/24 08:10 Freq: Status: Active Protocol: Document 11/14/24 09:52 SP (Rec: 11/14/24 10:55 SP [id number]) Physical Therapy Assessment Goals 4 Impairment Lack of HEP Handbag Finisher Goal (LTG) Pt will perform progressive HEP with I including posture, flexibility, range, and strengthening exercises to improve pain and progress towards other goals. 11/01/24: Pt only has a couple of ROM HEP exercises at this point and she is mostly doing her chore tasks. LTG Duration 8 weeks 3 Impairment Decreased right shoulder ROM [facility] Goal (LTG) Pt will present with AROM right shoulder flexion, abduction and IR behind the back similar to the left to improve ability to perform bimanual tasks. 11/01/24: Pt standing AROM: flexion right 140 deg; left 158 deg; abduction right 158 deg and left 162 deg; IR behind back right T11 and left T6 LTG Duration 8 weeks 2 Impairment QuickDASH score reflects over 56% impairment Handbag Finisher Goal (LTG) Pt will present with QuickDASH score reflecting no more than 25% to improve pain and functional use of arm for work. 11/01/24: QuickDASH score is slightly worse and reflects 61.36% impairment and this may be do to pt doing more functional work and chores at home and PT reviewing questionnaire with pt LTG Duration 8 weeks 1 Impairment Pain and limitation reaching behind back with right hand [facility] Goal (LTG) Pt will report a 90% improvement in right shoulder pain reaching behind back to fasten bra and tie apron per pt goal. 10/19/24: Didn't have to think about it this morning 11/01/24: Pt reports a 25% improvement in right shoulder pain reaching behind back to fasten bra and tie apron LTG Duration 8 weeks Assessment Summary Assessment Pt sensitive to pressure over anterior R shld, broad vs specific pressure better tolerance good hurt feel. Pt good form with pulleys, limited end range over head noodle. Good tolerance for continued performance SL R UE ABD, ER and HABD, tactile and verbal cues for slow pacing tolerance range with low to no pain. Good progression small range with cues mindful of not into pain IR behind back with towel. Pt declined HO for new there ex today ( IR, SL ABD/ER/HABD). Physical Therapy Plan Frequency and Duration Frequency of 2x/Week Treatment Duration of 8 treatment (weeks) Plan of Care Start 10/03/24 Date Plan of Care End 12/05/24 Date Therapeutic Interventions Therapeutic Balance Training,Canalithic Repositioning,Home Exercise Interventions Program,Joint Mobilizations,Manual Therapy, Neuromuscular Re-education,Patient/Caregiver Education, Self-Care/Home Management,Soft Tissue Mobilization, Taping,Therapeutic Activities,Therapeutic Exercises Modalities Cold Pack/Ice Massage,Electric Stimulation,Hot Packs, Ultrasound Other Referrals/Consults Referrals/Consults May need right shoulder MRI Recommended Next Visit Focus/Plan Next Note Type Treatment Note Next Visit Plan PN due 12/01/24, POC update by 12/05/24. Review HEP added R IR AAROM, SL R shld ABD, ER, HABD, pulleys, over noodle PT POC: progress HEP working on range, posture, thoracic mobility, manual work UBE caused pain in back
--- NOTE | 2024-11-21 13:24 | PT.OTN ---
Current Diagnoses Unspecified disorder of synovium and tendon, right upper arm (11/21/24) Physical Therapy Treatment Note PT-OP-A Visit Information Start: 10/02/24 08:10 Freq: Status: Active Protocol: Document 11/21/24 09:04 SP (Rec: 11/21/24 09:49 SP [id number]) Out-Patient Physical Therapy Visit Information Visit Information Visit Type Treatment Note Visit Note PN due 12/01/24, POC update by 12/05/24. Visit Start Time 09:04 Visit Stop Time 09:42 Visit Number 8 (next PN by 12/01) Number of MACHINE GROUP LEADER Visits 2 Evaluation Information Evaluation Date 10/03/24 Precautions Precautions *sensitivity to adhesive, Ktape in past Rshld. PT-OP-B Current Condition Start: 10/02/24 08:10 Freq: Status: Active Protocol: Document 10/03/24 07:28 MB (Rec: 10/03/24 08:06 MB Desktop) Current Condition History of Current Condition Onset Date Possibly more than a year Current Complaints Pain and severe limitation of range right shoulder History of Current Pt suspects that Sebastian of 2022, she was helping her Condition , who is disabled, and he was in a half-stand, and then a friend stepped in to help and she hurt her back and right shoulder. She had to use a walker for about a month. She thought she had rotator cuff issues. She suffered through it for about a year. 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 She had a x-ray but not a MRI. She had carpal tunnel surgery in the past year on the right and she is right handed. She has trouble putting o a bra. She had PT in the past for her back. Exercises on all fours could not be done d/t right shoulder pain . Pt denies numbness and she does report some tingling in right fingers, possibly from carpal tunnel surgery. is currently transferring himself. Pt ties an apron on for work and this hurts. She also has trouble reaching forward. She states that doctor states she might have a SLAP tear. Pt sleeps in supine and on side, has right shoulder pain at night. Meloxicam and magnesium glycinate are helping her sleep. Now her bladder is awakening her at night and not her shoulder pain. Treatment Goals Patient/Caregiver Improve range and decrease pain Goals PT-OP-C Subjective Start: 10/02/24 08:10 Freq: Status: Active Protocol: Document 11/21/24 09:04 SP (Rec: 11/21/24 09:49 SP [id number]) OP-PT Subjective Patient Comments Patient Comments Pt reports sore arrival, ice is her friend, didn't do HEP over weekend but still doing alot yard work but trying be mindful of proper body mechanics during weeding with long handled tools. Has appt with new specialized orthopedic Dr Calzada appt December 07 which will do a US imaging R shld. Keep us posted on results. PT-OP-J Posture/Palpation/Skin Start: 10/02/24 08:10 Freq: Status: Active Protocol: Document 10/03/24 07:28 MB (Rec: 10/03/24 08:06 MB Desktop) Posture Evaluation Comments Posture Comments Standing in bare feet: Forward head, rounded shoulders, Dowager's hump, increased body mass upper body and abdominal area, sway back, right shoulder is lower than the left, left shoulder more forward rounded than the right appears stiff in standing, left pelvis more forward, more WB on left leg and keeps left leg straight. Pt tends to keep right arm flexed and drawn up d/t pain. PT-OP-K Range of Motion Start: 10/02/24 08:10 Freq: Status: Active Protocol: Document 10/03/24 07:28 MB (Rec: 10/03/24 08:06 MB Desktop) Cervical Spine Range of Motion Cervical Spine Active Testing Position Standing Flexion 45 Extension 22 Rotation Left 62 Rotation Right 60 Lateral Flexion Left 12 Lateral Flexion 8 Right Comments Pt tends to keep her head about 3-4 deg in extension Shoulder Goniometric Range of Motion Shoulder Left Shoulder ROM WFL No Testing Position Standing Flexion 160 Extension 26 Abduction 162 Internal Rotation T8 Behind Back (text) Comments Anterior shoulder pain with abduction PROM in supine: shoulder in 90/90, IR normal and loose and ER harder end-feel at 75 deg Right Shoulder ROM WFL No Testing Position Standing Flexion 158 Extension 15 Abduction 140 Internal Rotation T12 Behind Back (text) Comments Anterior shoulder pain with flexion and abduction PROM in supine: shoulder in 90/90, ER to 45 deg and pt c/o pain and she limits range, IR to 50 deg and she limits range PT-OP-M Strength Start: 10/02/24 08:10 Freq: Status: Active Protocol: Document 10/03/24 07:28 MB (Rec: 10/03/24 08:06 MB Desktop) Shoulder Strength Shoulder Manual Muscle Testing Left Flexion 5 Normal Abduction (C5) 5 Normal Right Flexion 4+ Good+ Abduction (C5) 4+ Good+ Elbow/Forearm Strength Elbow and Forearm Manual Muscle Testing Left Flexion (C6) 5 Normal Extension (C7) 5 Normal Pronation 4+ Good+ Supination 4+ Good+ Right Flexion (C6) 4+ Good+ Extension (C7) 5 Normal Pronation 4 Good Supination 4- Good- Wrist Strength Wrist Manual Muscle Testing Left Flexion (C7) 5 Normal Extension (C6) 5 Normal Right Flexion (C7) 4+ Good+ Extension (C6) 4+ Good+ PT-OP-Q Treatments Start: 10/02/24 08:10 Freq: Status: Active Protocol: Document 11/21/24 09:04 SP (Rec: 11/21/24 09:49 SP [id number]) Therapeutic Exercises Supine Exercises Bicep Stretch Side right Comments manual and ed self Pool noodle on plinth Supine Exercise Name Reviewed: pec stretch, FF, HABD, Side bilateral Reps/Minutes 10 reps tolerance Comments Pect positional release with opposite hand Sidelying Exercises R shld Sidelying Exercise Reviewed Abduction, ER, HABD Name Side right Resistance AROM Reps/Minutes 5-10 reps each, HABD cued pause stretch anterior, ABD elbow straight Comments occ cues tactile Scap stab, elbow 90 deg ER inf glide with motion, HABD Standing Exercises R IR Standing Exercise 1. IR isometric Walk out - added to HEP declined HO Name Side right Resistance TB #1>2 orange Equipment Used Towel roll under arm Reps/Minutes 10 reps each R ER Standing Exercise 1. ER 2. ER isometric walk out- added to HEP-declined Name HO Side right Resistance Tb #2 >1 peach Reps/Minutes 1. 8 reps 2. 8 reps Comments cues for humeral inf glide, scap Manual Therapy Treatment Consent Patient gave verbal Yes consent for manual treatment Soft Tissue Mobilization R shld Body Location R pec major, Minor, prox bicep, distal pec, distal coracobrachalis Mobilization Type Rolling,Sustained Pressure,Other Comments gentle Broad STms and MWM with breath Joint Mobilizations R shld Joint GH JT Direction P<>A, sup<>inf Comments Feels good Self-Care/Home Management Treatment Education Patient Education Body Mechanics,Joint Protection,Pain Management,Safety Other Education Verbal education on scapular and spinal alignment during yard work, sounds like good use of long handled tools vs bending over. PT-OP-R Modalities Start: 10/10/24 15:25 Freq: Status: Active Protocol: Document 11/14/24 09:52 SP (Rec: 11/14/24 10:55 SP [id number]) Hot Pack/Cold Pack Treatment R shld Patient Position Sitting Patient Tolerance Good Comments R shld 10 min PT-OP-T Assessment and Plan Start: 10/02/24 08:10 Freq: Status: Active Protocol: Document 11/21/24 09:04 SP (Rec: 11/21/24 09:49 SP [id number]) Physical Therapy Assessment Goals 4 Impairment Lack of HEP Demo Specialist Goal (LTG) Pt will perform progressive HEP with I including posture, flexibility, range, and strengthening exercises to improve pain and progress towards other goals. 11/01/24: Pt only has a couple of ROM HEP exercises at this point and she is mostly doing her chore tasks. LTG Duration 8 weeks 3 Impairment Decreased right shoulder ROM Demo Specialist Goal (LTG) Pt will present with AROM right shoulder flexion, abduction and IR behind the back similar to the left to improve ability to perform bimanual tasks. 11/01/24: Pt standing AROM: flexion right 140 deg; left 158 deg; abduction right 158 deg and left 162 deg; IR behind back right T11 and left T6 LTG Duration 8 weeks 2 Impairment QuickDASH score reflects over 56% impairment Demo Specialist Goal (LTG) Pt will present with QuickDASH score reflecting no more than 25% to improve pain and functional use of arm for work. 11/01/24: QuickDASH score is slightly worse and reflects 61.36% impairment and this may be do to pt doing more functional work and chores at home and PT reviewing questionnaire with pt LTG Duration 8 weeks 1 Impairment Pain and limitation reaching behind back with right hand Correction Goal (LTG) Pt will report a 90% improvement in right shoulder pain reaching behind back to fasten bra and tie apron per pt goal. 10/19/24: Didn't have to think about it this morning 11/01/24: Pt reports a 25% improvement in right shoulder pain reaching behind back to fasten bra and tie apron LTG Duration 8 weeks Assessment Summary Assessment Pt little sensitive to manual distal anterior R shld attachment, adjusted pressure and broad vs specific for good tolerance benefits but not cause irritation. Continued to progress AROM and strengthening within pnfree range/tolerance, cues for R scap stabilization positioning and recruitment: L SL, over noodle and added standing with resistance band, improved tiring not painful. Would benefit from continued skilled PT for AROM/strength and future tx assess body mechanics with yard work while incorporating further education on not over working R shd. Update POC in couple visits. Physical Therapy Plan Frequency and Duration Frequency of 2x/Week Treatment Duration of 8 treatment (weeks) Plan of Care Start 10/03/24 Date Plan of Care End 12/05/24 Date Therapeutic Interventions Therapeutic Balance Training,Canalithic Repositioning,Home Exercise Interventions Program,Joint Mobilizations,Manual Therapy, Neuromuscular Re-education,Patient/Caregiver Education, Self-Care/Home Management,Soft Tissue Mobilization, Taping,Therapeutic Activities,Therapeutic Exercises Modalities Cold Pack/Ice Massage,Electric Stimulation,Hot Packs, Ultrasound Other Referrals/Consults Referrals/Consults May need right shoulder MRI Recommended Next Visit Focus/Plan Next Note Type Treatment Note Next Visit Plan PN due 12/01/24, POC update by 12/05/24. Recheck noodle ex, TB stand wall IR/ER,Will bring HOs for new PT to review. Review HEP IR/ ER TB standing, R IR AAROM stretch, SL R shld ABD, ER, HABD, pulleys, over noodle PT POC: progress HEP working on range, posture, thoracic mobility, manual work UBE caused pain in back
--- NOTE | 2024-11-23 08:14 | PT.OTN ---
Current Diagnoses Unspecified disorder of synovium and tendon, right upper arm (11/23/24) Physical Therapy Treatment Note PT-OP-A Visit Information Start: 10/02/24 08:10 Freq: Status: Active Protocol: Document 11/23/24 07:30 BL (Rec: 11/23/24 08:12 BL Laptop) Out-Patient Physical Therapy Visit Information Visit Information Visit Type Treatment Note Visit Note PN due 12/01/24, POC update by 12/05/24. 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 PT-OP-B Current Condition Start: 10/02/24 08:10 Freq: Status: Active Protocol: Document 10/03/24 07:28 MB (Rec: 10/03/24 08:06 MB Desktop) Current Condition History of Current Condition Onset Date Possibly more than a year Current Complaints Pain and severe limitation of range right shoulder History of Current Pt suspects that [place] of 2022, she was helping her Condition , who is disabled, and he was in a half-stand, and then a friend stepped in to help and she hurt her back and right shoulder. She had to use a walker for about a month. She thought she had rotator cuff issues. She suffered through it for about a year. 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 She had a x-ray but not a MRI. She had carpal tunnel surgery in the past year on the right and she is right handed. She has trouble putting o a bra. She had PT in the past for her back. Exercises on all fours could not be done d/t right shoulder pain . Pt denies numbness and she does report some tingling in right fingers, possibly from carpal tunnel surgery. is currently transferring himself. Pt ties an apron on for work and this hurts. She also has trouble reaching forward. She states that doctor states she might have a SLAP tear. Pt sleeps in supine and on side, has right shoulder pain at night. Meloxicam and magnesium glycinate are helping her sleep. Now her bladder is awakening her at night and not her shoulder pain. Treatment Goals Patient/Caregiver Improve range and decrease pain Goals PT-OP-C Subjective Start: 10/02/24 08:10 Freq: Status: Active Protocol: Document 11/23/24 07:30 BL (Rec: 11/23/24 08:12 BL Laptop) OP-PT Subjective Patient Comments Patient Comments Pt presents to the clinic this date and reports she is doing well, states she was pretty sore since the last session, reports its a hurts so good feeling. states she was not able to try the new band exercises. PT-OP-J Posture/Palpation/Skin Start: 10/02/24 08:10 Freq: Status: Active Protocol: Document 10/03/24 07:28 MB (Rec: 10/03/24 08:06 MB Desktop) Posture Evaluation Comments Posture Comments Standing in bare feet: Forward head, rounded shoulders, Dowager's hump, increased body mass upper body and abdominal area, sway back, right shoulder is lower than the left, left shoulder more forward rounded than the right appears stiff in standing, left pelvis more forward, more WB on left leg and keeps left leg straight. Pt tends to keep right arm flexed and drawn up d/t pain. PT-OP-K Range of Motion Start: 10/02/24 08:10 Freq: Status: Active Protocol: Document 10/03/24 07:28 MB (Rec: 10/03/24 08:06 MB Desktop) Cervical Spine Range of Motion Cervical Spine Active Testing Position Standing Flexion 45 Extension 22 Rotation Left 62 Rotation Right 60 Lateral Flexion Left 12 Lateral Flexion 8 Right Comments Pt tends to keep her head about 3-4 deg in extension Shoulder Goniometric Range of Motion Shoulder Left Shoulder ROM WFL No Testing Position Standing Flexion 160 Extension 26 Abduction 162 Internal Rotation T8 Behind Back (text) Comments Anterior shoulder pain with abduction PROM in supine: shoulder in 90/90, IR normal and loose and ER harder end-feel at 75 deg Right Shoulder ROM WFL No Testing Position Standing Flexion 158 Extension 15 Abduction 140 Internal Rotation T12 Behind Back (text) Comments Anterior shoulder pain with flexion and abduction PROM in supine: shoulder in 90/90, ER to 45 deg and pt c/o pain and she limits range, IR to 50 deg and she limits range PT-OP-M Strength Start: 10/02/24 08:10 Freq: Status: Active Protocol: Document 10/03/24 07:28 MB (Rec: 10/03/24 08:06 MB Desktop) Shoulder Strength Shoulder Manual Muscle Testing Left Flexion 5 Normal Abduction (C5) 5 Normal Right Flexion 4+ Good+ Abduction (C5) 4+ Good+ Elbow/Forearm Strength Elbow and Forearm Manual Muscle Testing Left Flexion (C6) 5 Normal Extension (C7) 5 Normal Pronation 4+ Good+ Supination 4+ Good+ Right Flexion (C6) 4+ Good+ Extension (C7) 5 Normal Pronation 4 Good Supination 4- Good- Wrist Strength Wrist Manual Muscle Testing Left Flexion (C7) 5 Normal Extension (C6) 5 Normal Right Flexion (C7) 4+ Good+ Extension (C6) 4+ Good+ PT-OP-Q Treatments Start: 10/02/24 08:10 Freq: Status: Active Protocol: Document 11/23/24 07:30 BL (Rec: 11/23/24 08:12 BL Laptop) Therapeutic Exercises Supine Exercises Bicep Stretch Side right Comments manual and ed self Pool noodle on plinth Supine Exercise Name Reviewed: pec stretch, FF, HABD, ER Side bilateral Reps/Minutes 10 reps tolerance Comments Pec positional release with opposite hand, reviewed for home HEP Sidelying Exercises R shld Sidelying Exercise Reviewed Abduction, ER, HABD Name Side right Resistance AROM Reps/Minutes 5-10 reps each, HABD cued pause stretch anterior, ABD elbow straight Comments occ cues tactile Scap stab, elbow 90 deg ER inf glide with motion, HABD Sitting Exercises Pulleys Sitting Exercise Reviewed: FF, ABD, Scaption (reviewed) Name Side bilateral Reps/Minutes 2x 10 reps each Standing Exercises R IR Standing Exercise 1. IR isometric Walk out Name Side right Resistance TB #1>2 orange Equipment Used Towel roll under arm Reps/Minutes 10 reps each R ER Standing Exercise 1. ER 2. ER isometric walk out- added to HEP-declined Name HO Side right Resistance Tb #2 >1 peach Reps/Minutes 1. 8 reps 2. 8 reps Comments cues for humeral inf glide, scap PT-OP-R Modalities Start: 10/10/24 15:25 Freq: Status: Active Protocol: Document 11/14/24 09:52 SP (Rec: 11/14/24 10:55 SP [id number]) Hot Pack/Cold Pack Treatment R shld Patient Position Sitting Patient Tolerance Good Comments R shld 10 min PT-OP-T Assessment and Plan Start: 10/02/24 08:10 Freq: Status: Active Protocol: Document 11/23/24 07:30 BL (Rec: 11/23/24 08:12 BL Laptop) Physical Therapy Assessment Goals 4 Impairment Lack of HEP Quill Fixer Goal (LTG) Pt will perform progressive HEP with I including posture, flexibility, range, and strengthening exercises to improve pain and progress towards other goals. 11/01/24: Pt only has a couple of ROM HEP exercises at this point and she is mostly doing her chore tasks. LTG Duration 8 weeks 3 Impairment Decreased right shoulder ROM Quill Fixer Goal (LTG) Pt will present with AROM right shoulder flexion, abduction and IR behind the back similar to the left to improve ability to perform bimanual tasks. 11/01/24: Pt standing AROM: flexion right 140 deg; left 158 deg; abduction right 158 deg and left 162 deg; IR behind back right T11 and left T6 LTG Duration 8 weeks 2 Impairment QuickDASH score reflects over 56% impairment Alf Goal (LTG) Pt will present with QuickDASH score reflecting no more than 25% to improve pain and functional use of arm for work. 11/01/24: QuickDASH score is slightly worse and reflects 61.36% impairment and this may be do to pt doing more functional work and chores at home and PT reviewing questionnaire with pt LTG Duration 8 weeks 1 Impairment Pain and limitation reaching behind back with right hand Quill Fixer Goal (LTG) Pt will report a 90% improvement in right shoulder pain reaching behind back to fasten bra and tie apron per pt goal. 10/19/24: Didn't have to think about it this morning 11/01/24: Pt reports a 25% improvement in right shoulder pain reaching behind back to fasten bra and tie apron LTG Duration 8 weeks Assessment Summary Assessment Pt continues to tolerates well, pt provided additional education on anatomy and importance of not pushing through pain as well as posture and focusing on small movements for RC strengthening. Physical Therapy Plan Frequency and Duration Frequency of 2x/Week Treatment Duration of 8 treatment (weeks) Plan of Care Start 10/03/24 Date Plan of Care End 12/05/24 Date Therapeutic Interventions Therapeutic Balance Training,Canalithic Repositioning,Home Exercise Interventions Program,Joint Mobilizations,Manual Therapy, Neuromuscular Re-education,Patient/Caregiver Education, Self-Care/Home Management,Soft Tissue Mobilization, Taping,Therapeutic Activities,Therapeutic Exercises Modalities Cold Pack/Ice Massage,Electric Stimulation,Hot Packs, Ultrasound Other Referrals/Consults Referrals/Consults May need right shoulder MRI Recommended Next Visit Focus/Plan Next Note Type Progress Note Next Visit Plan PN due 12/01/24, POC update by 12/05/24. Recheck noodle ex, TB stand wall IR/ER, Review HEP IR/ ER TB standing, R IR AAROM stretch, SL R shld ABD, ER, HABD, pulleys, over noodle PT POC: progress HEP working on range, posture, thoracic mobility, manual work UBE caused pain in back
--- NOTE | 2024-11-29 16:54 | PT.OTN ---
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 She had to use a walker for about a month. She thought she had rotator cuff issues. She suffered through it for about a year. 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 She had a x-ray but not a MRI. She had carpal tunnel surgery in the past year on the right and she is right handed. She has trouble putting o a bra. She had PT in the past for her back. Exercises on all fours could not be done d/t right shoulder pain . Pt denies numbness and she does report some tingling in right fingers, possibly from carpal tunnel surgery. is currently transferring himself. Pt ties an apron on for work and this hurts. She also has trouble reaching forward. She states that doctor states she might have a SLAP tear. Pt sleeps in supine and on side, has right shoulder pain at night. Meloxicam and magnesium glycinate are helping her sleep. Now her bladder is awakening her at night and not her shoulder pain. Treatment Goals Patient/Caregiver Improve range and decrease pain Goals PT-OP-C Subjective Start: 10/02/24 08:10 Freq: Status: Active Protocol: Document 11/29/24 07:34 BL (Rec: 11/29/24 08:17 BL Laptop) OP-PT Subjective Patient Comments Patient Comments Pt presents to the clinic this date and reports she is doing well, overall continues to feel she improves however pain over her R anterior and superolateral shoulder still limits her ADLs. PT-OP-J Posture/Palpation/Skin Start: 10/02/24 08:10 Freq: Status: Active Protocol: Document 11/29/24 07:34 BL (Rec: 11/29/24 16:35 BL Laptop) Posture Evaluation Comments Posture Comments Pt continues to demo Forward head, rounded shoulders R> L, Dowager's hump. PT-OP-K Range of Motion Start: 10/02/24 08:10 Freq: Status: Active Protocol: Document 11/29/24 07:34 BL (Rec: 11/29/24 16:35 BL Laptop) Cervical Spine Range of Motion Cervical Spine Active Testing Position Standing Flexion 45 Extension 22 Rotation Left 62 Rotation Right 60 Lateral Flexion Left 12 Lateral Flexion 8 Right Comments Pt tends to keep her head about 3-4 deg in extension Shoulder Goniometric Range of Motion Shoulder Left Shoulder ROM WFL No Testing Position Standing Flexion 160 Extension 26 Abduction 162 Internal Rotation T8 Behind Back (text) Comments Anterior shoulder pain with abduction PROM in supine: shoulder in 90/90, IR normal and loose and ER harder end-feel at 75 deg Right Shoulder ROM WFL No Testing Position Standing Flexion 138 Extension 20 Abduction 132 Internal Rotation T18 Behind Back (text) Comments Anterior shoulder pain with flexion and abduction PROM in supine: shoulder in 90/90, ER to 60 deg and pt c/o pain and she limits range, IR to 55 deg and she limits range PT-OP-M Strength Start: 10/02/24 08:10 Freq: Status: Active Protocol: Document 11/29/24 07:34 BL (Rec: 11/29/24 16:35 BL Laptop) Shoulder Strength Shoulder Manual Muscle Testing Left Flexion 5 Normal Abduction (C5) 5 Normal Right Flexion 4+ Good+ Abduction (C5) 4+ Good+ Elbow/Forearm Strength Elbow and Forearm Manual Muscle Testing Left Flexion (C6) 5 Normal Extension (C7) 5 Normal Pronation 4+ Good+ Supination 4+ Good+ Right Flexion (C6) 4+ Good+ Extension (C7) 5 Normal Pronation 4+ Good+ Supination 4+ Good+ Comments pain at all ranges in shoulder Wrist Strength Wrist Manual Muscle Testing Left Flexion (C7) 5 Normal Extension (C6) 5 Normal Right Flexion (C7) 4+ Good+ Extension (C6) 4+ Good+ PT-OP-Q Treatments Start: 10/02/24 08:10 Freq: Status: Active Protocol: Document 11/29/24 07:34 BL (Rec: 11/29/24 08:17 BL Laptop) Therapeutic Exercises Supine Exercises Bicep Stretch Side right Comments doorway stretch with arm at side Pool noodle on plinth Supine Exercise Name pec stretch, FF, HABD, ER (reviewed) Side bilateral Reps/Minutes 10 reps tolerance Comments Pec positional release with opposite hand, reviewed for home HEP Sidelying Exercises R shld Sidelying Exercise Reviewed Abduction, ER, HABD Name Side right Resistance AROM Reps/Minutes 5-10 reps each, HABD cued pause stretch anterior, ABD elbow straight Comments occ cues tactile Scap stab, elbow 90 deg ER inf glide with motion, HABD Sitting Exercises Pulleys Sitting Exercise Reviewed: FF, ABD, Scaption (reviewed) Name Side bilateral Reps/Minutes 2x 10 reps each PT-OP-R Modalities Start: 10/10/24 15:25 Freq: Status: Active Protocol: Document 11/14/24 09:52 SP (Rec: 11/14/24 10:55 SP [id number]) Hot Pack/Cold Pack Treatment R shld Patient Position Sitting Patient Tolerance Good Comments R shld 10 min PT-OP-T Assessment and Plan Start: 10/02/24 08:10 Freq: Status: Active Protocol: Document 11/29/24 07:34 BL (Rec: 11/29/24 08:17 BL Laptop) Physical Therapy Assessment Goals [place] 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 Demoing 4/5 strength by DC for improved completion of ADLS. 4 Impairment Lack of HEP Fpc Goal (LTG) Pt will perform progressive HEP with I including posture, flexibility, range, and strengthening exercises to improve pain and progress towards other goals. 11/01/24: Pt only has a couple of ROM HEP exercises at this point and she is mostly doing her chore tasks. 11/29/24: Goal Met LTG Duration 8 weeks 3 Impairment Decreased right shoulder ROM Fpc Goal (LTG) Pt will present with AROM right shoulder flexion, abduction and IR behind the back similar to the left to improve ability to perform bimanual tasks. 11/01/24: Pt standing AROM: flexion right 140 deg; left 158 deg; abduction right 158 deg and left 162 deg; IR behind back right T11 and left T6 11/29/24: Pt standing AROM: flexion right 138 deg; left 158 deg; abduction right 132 deg and left 162 deg; IR behind back right T8 and left T6 LTG Duration 8 weeks 2 Impairment QuickDASH score reflects over 56% impairment Fpc Goal (LTG) Pt will present with QuickDASH score reflecting no more than 25% to improve pain and functional use of arm for work. 11/01/24: QuickDASH score is slightly worse and reflects 61.36% impairment and this may be do to pt doing more functional work and chores at home and PT reviewing questionnaire with pt 11/29/24: per pt reports she continues to demo improvement with ADLS, is able to participate more. Cautious with lifting tasks behind her. LTG Duration 8 weeks 1 Impairment Pain and limitation reaching behind back with right hand Fpc Goal (LTG) Pt will report a 90% improvement in right shoulder pain reaching behind back to fasten bra and tie apron per pt goal. 10/19/24: Didn't have to think about it this morning 11/01/24: Pt reports a 25% improvement in right shoulder pain reaching behind back to fasten bra and tie apron 11/29/24: Pt continues to demo improved AROM but continues to have decreased ROM and pain through anterior shoulder. (continues to progress) LTG Duration 8 weeks Assessment Summary Assessment Pt has continued to make progress in skilled Physical Therapy however had a set back about a month ago where she over did it and is still trying to regain her ROM and strength back. Pt continues to have pain with over head and away from body activities, she continues to demo signs and symptoms consistent with biceps tendonitis with possible rotator cuff tendinopathy from impingement. Due to prolonged symptoms pt would benefit form follow up with referring provider for additional imaging. Plan to continue with skilled Physical Therapy intervention at this time for continued strengthening and posture modification after follow up with referring provided in two weeks. Physical Therapy Plan Frequency and Duration Frequency of 2x/Week Treatment Duration of 8 treatment (weeks) Plan of Care Start 11/29/24 Plan of Care End 01/24/25 Date Therapeutic Interventions Therapeutic Balance Training,Coordination Training,Gait Training, Interventions Home Exercise Program,Joint Mobilizations,Lymphedema Management,Manual Therapy,Neuromuscular Re-education, Orthotic/Prosthetic Management,Patient/Caregiver Education,Self-Care/Home Management,Soft Tissue Mobilization,Taping,Therapeutic Activities,Therapeutic Exercises Modalities Cold Pack/Ice Massage,Electric Stimulation,Hot Packs, Infrared Therapy,Iontophoresis,Ultrasound Other Referrals/Consults Referrals/Consults Recommend follow up with referring provided and Recommended additional imaging. Next Visit Focus/Plan Next Note Type Treatment Note
--- NOTE | 2025-01-13 16:57 | PT.OPDS ---
Current Diagnoses Unspecified disorder of synovium and tendon, right upper arm (11/29/24) Visit Care Team Role Provider Type KIM Vasquez Family Provider Non-Staff Primary Care Provider Specialty: Nursing Address: [address] [place] [address], [id number] Email: Silvio Conti MD Attending Provider Physician Referring Provider Specialty: Orthopedic Surgery Address: [address] [place] [address], [id number] Email: [email or web address] Visit Number Visit Number 10 (06/03) PN by 12/30/24 Discharge Summary Plan to DC pt at this time due to lack of follow up/progress toward goals see below for most recent data. 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 She had to use a walker for about a month. She thought she had rotator cuff issues. She suffered through it for about a year. 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 She had a x-ray but not a MRI. She had carpal tunnel surgery in the past year on the right and she is right handed. She has trouble putting o a bra. She had PT in the past for her back. Exercises on all fours could not be done d/t right shoulder pain . Pt denies numbness and she does report some tingling in right fingers, possibly from carpal tunnel surgery. is currently transferring himself. Pt ties an apron on for work and this hurts. She also has trouble reaching forward. She states that doctor states she might have a SLAP tear. Pt sleeps in supine and on side, has right shoulder pain at night. Meloxicam and magnesium glycinate are helping her sleep. Now her bladder is awakening her at night and not her shoulder pain. Treatment Goals Patient/Caregiver Improve range and decrease pain Goals PT-OP-C Subjective Start: 10/02/24 08:10 Freq: Status: Active Protocol: Document 11/29/24 07:34 BL (Rec: 11/29/24 08:17 BL Laptop) OP-PT Subjective Patient Comments Patient Comments Pt presents to the clinic this date and reports she is doing well, overall continues to feel she improves however pain over her R anterior and superolateral shoulder still limits her ADLs. PT-OP-J Posture/Palpation/Skin Start: 10/02/24 08:10 Freq: Status: Active Protocol: Document 11/29/24 07:34 BL (Rec: 11/29/24 16:35 BL Laptop) Posture Evaluation Comments Posture Comments Pt continues to demo Forward head, rounded shoulders R> L, Dowager's hump. PT-OP-K Range of Motion Start: 10/02/24 08:10 Freq: Status: Active Protocol: Document 11/29/24 07:34 BL (Rec: 11/29/24 16:35 BL Laptop) Cervical Spine Range of Motion Cervical Spine Active Testing Position Standing Flexion 45 Extension 22 Rotation Left 62 Rotation Right 60 Lateral Flexion Left 12 Lateral Flexion 8 Right Comments Pt tends to keep her head about 3-4 deg in extension Shoulder Goniometric Range of Motion Shoulder Left Shoulder ROM WFL No Testing Position Standing Flexion 160 Extension 26 Abduction 162 Internal Rotation T8 Behind Back (text) Comments Anterior shoulder pain with abduction PROM in supine: shoulder in 90/90, IR normal and loose and ER harder end-feel at 75 deg Right Shoulder ROM WFL No Testing Position Standing Flexion 138 Extension 20 Abduction 132 Internal Rotation T18 Behind Back (text) Comments Anterior shoulder pain with flexion and abduction PROM in supine: shoulder in 90/90, ER to 60 deg and pt c/o pain and she limits range, IR to 55 deg and she limits range PT-OP-M Strength Start: 10/02/24 08:10 Freq: Status: Active Protocol: Document 11/29/24 07:34 BL (Rec: 11/29/24 16:35 BL Laptop) Shoulder Strength Shoulder Manual Muscle Testing Left Flexion 5 Normal Abduction (C5) 5 Normal Right Flexion 4+ Good+ Abduction (C5) 4+ Good+ Elbow/Forearm Strength Elbow and Forearm Manual Muscle Testing Left Flexion (C6) 5 Normal Extension (C7) 5 Normal Pronation 4+ Good+ Supination 4+ Good+ Right Flexion (C6) 4+ Good+ Extension (C7) 5 Normal Pronation 4+ Good+ Supination 4+ Good+ Comments pain at all ranges in shoulder Wrist Strength Wrist Manual Muscle Testing Left Flexion (C7) 5 Normal Extension (C6) 5 Normal Right Flexion (C7) 4+ Good+ Extension (C6) 4+ Good+ PT-OP-T Assessment and Plan Start: 10/02/24 08:10 Freq: Status: Active Protocol: Document 11/29/24 07:34 BL (Rec: 11/29/24 08:17 BL Laptop) Physical Therapy Assessment Goals Five Coremaker Supervisor Goal (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 Demoing 4/5 strength by DC for improved completion of ADLS. 4 Impairment Lack of HEP Alf Goal (LTG) Pt will perform progressive HEP with I including posture, flexibility, range, and strengthening exercises to improve pain and progress towards other goals. 11/01/24: Pt only has a couple of ROM HEP exercises at this point and she is mostly doing her chore tasks. 11/29/24: Goal Met LTG Duration 8 weeks 3 Impairment Decreased right shoulder ROM Coremaker Supervisor Goal (LTG) Pt will present with AROM right shoulder flexion, abduction and IR behind the back similar to the left to improve ability to perform bimanual tasks. 11/01/24: Pt standing AROM: flexion right 140 deg; left 158 deg; abduction right 158 deg and left 162 deg; IR behind back right T11 and left T6 11/29/24: Pt standing AROM: flexion right 138 deg; left 158 deg; abduction right 132 deg and left 162 deg; IR behind back right T8 and left T6 LTG Duration 8 weeks 2 Impairment QuickDASH score reflects over 56% impairment Alf Goal (LTG) Pt will present with QuickDASH score reflecting no more than 25% to improve pain and functional use of arm for work. 11/01/24: QuickDASH score is slightly worse and reflects 61.36% impairment and this may be do to pt doing more functional work and chores at home and PT reviewing questionnaire with pt 11/29/24: per pt reports she continues to demo improvement with ADLS, is able to participate more. Cautious with lifting tasks behind her. LTG Duration 8 weeks 1 Impairment Pain and limitation reaching behind back with right hand Alf Goal (LTG) Pt will report a 90% improvement in right shoulder pain reaching behind back to fasten bra and tie apron per pt goal. 10/19/24: Didn't have to think about it this morning 11/01/24: Pt reports a 25% improvement in right shoulder pain reaching behind back to fasten bra and tie apron 11/29/24: Pt continues to demo improved AROM but continues to have decreased ROM and pain through anterior shoulder. (continues to progress) LTG Duration 8 weeks Assessment Summary Assessment Pt has continued to make progress in skilled Physical Therapy however had a set back about a month ago where she over did it and is still trying to regain her ROM and strength back. Pt continues to have pain with over head and away from body activities, she continues to demo signs and symptoms consistent with biceps tendonitis with possible rotator cuff tendinopathy from impingement. Due to prolonged symptoms pt would benefit form follow up with referring provider for additional imaging. Plan to continue with skilled Physical Therapy intervention at this time for continued strengthening and posture modification after follow up with referring provided in two weeks. Physical Therapy Plan Frequency and Duration Frequency of 2x/Week Treatment Duration of 8 treatment (weeks) Plan of Care Start 11/29/24 Date Plan of Care End 01/24/25 Date Therapeutic Interventions Therapeutic Balance Training,Coordination Training,Gait Training, Interventions Home Exercise Program,Joint Mobilizations,Lymphedema Management,Manual Therapy,Neuromuscular Re-education, Orthotic/Prosthetic Management,Patient/Caregiver Education,Self-Care/Home Management,Soft Tissue Mobilization,Taping,Therapeutic Activities,Therapeutic Exercises Modalities Cold Pack/Ice Massage,Electric Stimulation,Hot Packs, Infrared Therapy,Iontophoresis,Ultrasound Other Referrals/Consults Referrals/Consults Recommend follow up with referring provided and Recommended additional imaging. Next Visit Focus/Plan Next Note Type Treatment Note
== END 2025-02-08 09:50 | disposition home or self-care (01) ==
LOC: PHYS 07:30
PROVIDERS: Family Provider Nurse Practitioner Family; PCP Nurse Practitioner Family; Referring Provider Orthopaedic Surgery; Visit Provider Orthopaedic Surgery
DX: M67.921 Unspecified disorder of synovium and tendon, right upper arm (principal)
CPT/HCPCS: 97110; 97140; 97161; 97535

== ENCOUNTER → 2025-01-02 14:42 | Outpatient (CLI) | payer OTHER, SELFPAY ==
--- NOTE | 2025-01-02 14:45 | DI.US.S_ITS ---
PROCEDURE: US INJECTION TENDON SHEATH INDICATIONS: prox bicep tendon us guided cortisone injection TECHNIQUE: The indications, alternatives, benefits, risks, and complications of the procedure were explained to the patient. Written informed consent was obtained and placed in the chart. The patient was placed in an appropriate position on the fluoroscopy table, and a site was chosen for percutaneous access under ultrasound guidance. Local anesthetic was administered using a 1% lidocaine solution. A hypodermic or spinal needle was then used to access the symptomatic joint. Intra-articular location of the needle tip was confirmed by real time ultrasound imaging, followed by steroid administration. The needle was then withdrawn, and a bandage applied to the puncture site. COMPARISON: None. FINDINGS: Joint injected: Right biceps long head tendon sheath Medications injected: 1.5 mL of 40 mg/mL Kenalog and 0.5% Ropivacaine mixture. Complications: None. IMPRESSION: Successful ultrasound guided administration of steroid and anaesthetic solution into the right biceps long-head tendon sheath. Approved by: Garcia Fisher M.D. on 01/02/2025 at 16:48
== END ==
PROVIDERS: PCP Nurse Practitioner Family; Referring Provider Orthopaedic Surgery; Visit Provider Orthopaedic Surgery
DX: M75.21 Bicipital tendinitis, right shoulder (principal); M75.51 Bursitis of right shoulder
CPT/HCPCS: 20550; 76942